=== PATIENT | male | born 1975 | race Caucasian/White ===

== ENCOUNTER → 2016-06-25 | Outpatient (CLI) | payer OTHER ==
[2016-06-25 15:26] LABS: PROTHROMBIN TIME 29.2 SEC (11.4-15.4)
== END ==
LOC: OD 14:42
PROVIDERS: ATTEND Pediatrics Pediatric Cardiology
DX: Z95.2 Presence of prosthetic heart valve (principal)
CPT/HCPCS: 36415; 85610

== ENCOUNTER → 2016-07-05 | Outpatient (CLI) | payer OTHER ==
[2016-07-05 09:40] LABS: PROTHROMBIN TIME 32.6 SEC (11.4-15.4)
== END ==
LOC: OD 08:57
PROVIDERS: ATTEND Pediatrics Pediatric Cardiology
DX: Z95.2 Presence of prosthetic heart valve (principal)
CPT/HCPCS: 36415; 85610

== ENCOUNTER 2016-07-28 04:29 | Emergency (ER) | payer OTHER ==
--- NOTE | 2016-07-28 04:56 | ER Document Report ---
Doctor's Note Notes: 07/28/16 04:52 I performed a quick triage evaluation of the patient. Patient is a 40-year-old male with a history of strokes at her urosepsis it led to surgery requiring mitral and aortic valve replacement. He presents considerable episode. He says he did drink alcohol tonight. He says he was walking to go through office also warm and then a syncopal episode. He denies standing up suddenly. He denies headache before after the fall. He denies any chest pain. No shortness of breath. He says he otherwise feels fine. He is followed by Dr. 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 No recent leg pain leg swelling. No recent fevers. No focal weakness or numbness. No other complaints at this time. On exam patient is well-appearing. He is in no distress. His lung spears are clear. 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 Ordered a CT scan the head being that he is on Coumadin and did have a syncopal episode. Ordered cardiac workup due to his cardiac history. I did obtain EKG which I read as follows: EKG is reviewed and interpreted by me. EKG shows sinus rhythm with rate of 66 bpm. Occasional PVC. Patient has large right bundle branch block which I suspect was caused by his previous open-heart surgery. No concerning ischemic changes. No old EKG available for comparison. Prior interval is slightly prolonged. QRS duration is prolonged. QTc interval is prolonged. 07/28/16 04:53
[2016-07-28 05:58] LABS: ABSOLUTE BASOPHILS # (AUTO) 0.1 10^3/uL (0.0-0.2); ABSOLUTE EOSINOPHILS # (AUTO) 0.2 10^3/uL (0.0-0.6); ABSOLUTE LYMPHOCYTES (AUTO) 1.4 10^3/uL (0.5-4.7); ABSOLUTE MONOCYTES (AUTO) 0.4 10^3/uL (0.1-1.4); ABSOLUTE NEUT (AUTO) 3.3 10^3/uL (1.7-8.2); BASOPHILS % (AUTO) 1.2 % (0-2); EOSINOPHILS % (AUTO) 3.8 % (0-6); HEMATOCRIT 41.4 % (37.9-51.0); HEMOGLOBIN 14.1 g/dL (13.5-17.0); HGB HCT DIFFERENCE 0.9; LYMPHOCYTES % (AUTO) 26.4 % (13-45); MEAN CORPUSCULAR HEMOGLOBIN 29.5 pg (27.0-33.4); MEAN CORPUSCULAR HGB CONC 34.1 g/dL (32.0-36.0); MEAN CORPUSCULAR VOLUME 87 fl (80-97); MONOCYTES % (AUTO) 7.8 % (3-13); RED BLOOD COUNT 4.78 10^6/uL (4.35-5.55); RED CELL DISTRIBUTION WIDTH 13.2 % (11.5-14.0); SEGMENTED NEUTROPHILS % (AUTO) 60.8 % (42-78); WHITE BLOOD COUNT 5.4 10^3/uL (4.0-10.5)
[2016-07-28 06:06] LABS: PROTHROMBIN TIME 28.7 SEC (11.4-15.4)
[2016-07-28 06:18] LABS: ALANINE AMINOTRANSFERASE 31 U/L (21-72); ALBUMIN 4.6 g/dL (3.5-5.0); ALKALINE PHOSPHATASE 73 U/L (38-126); ANION GAP 18 (5-19); ASPARTATE AMINO TRANSFERASE 26 U/L (17-59); BILIRUBIN,TOTAL 0.6 mg/dL (0.2-1.3); BLOOD UREA NITROGEN 21 mg/dL (7-20); CALCIUM 9.7 mg/dL (8.4-10.2); CARBON DIOXIDE 20 mmol/L (22-30); CHLORIDE 105 mmol/L (98-107); CREATINE KINASE 83 U/L (55-170); GLUCOSE 76 mg/dL (75-110); POTASSIUM 3.9 mmol/L (3.6-5.0); SODIUM 143.2 mmol/L (137-145); TOTAL PROTEIN 7.2 g/dL (6.3-8.2)
[2016-07-28 06:31] LABS: CREATINE KINASE MB 1.15 ng/mL (<4.55)
[2016-07-28 06:40] LABS: TROPONIN I < 0.012 ng/mL
[2016-07-28] MEDS ORDERED: NORMAL SALINE 1000 ML 500 ML IV ONE (07:19)
[2016-07-28] MEDS ORDERED: ONDANSETRON ODT 4 MG TAB (6 TAB/DSPK) PO PRN (09:18)
--- NOTE | 2016-07-28 09:19 | ER Document Report ---
ED General - General Chief Complaint: Syncope Stated Complaint: FALL SYNCOPE TRAVEL OUTSIDE OF THE [place] IN LAST 30 DAYS: No - HPI Patient complains to provider of: syncope EtOH intoxication Notes: Patient is today with a history of valvular replacement on Coumadin having syncopal episode after drinking. Patient states he had multiple alcohol drinks has equal episode fell his head otherwise by my evaluation patient has no complaints this time. Patient states he feels little finding possibly however no nausea no vomiting no diarrhea. Patient was seen and evaluated by nighttime doc. Patient otherwise denies any recent travel antibiotics denies any pain at this time. - Related Data Allergies/Adverse Reactions: aspirin [Aspirin] Allergy (Mild, Verified 10/11/14 23:31) Past Medical History - Social History Smoking Status: Current Some Day Smoker Chew tobacco use (# tins/day): No Frequency of alcohol use: Rare Drug Abuse: None Family History: Reviewed & Not Pertinent Patient has suicidal ideation: No Patient has homicidal ideation: No - Past Medical History Cardiac Medical History: Reports: Hx Hypercholesterolemia, Hx Hypertension Renal/ Medical History: Denies: Hx Peritoneal Dialysis Malignancy Medical History: Reports Hx Testicular 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 Past Surgical History: Reports: Hx Cardiac Catheterization, Hx Cardiac Surgery - aortic & mitral valve replacements, Hx Genitourinary Surgery - L orchiectomy, Hx Orthopedic Surgery, Hx Valve Replacement - Replacement of the aortic and pulmonic valves - Immunizations Hx Diphtheria, Pertussis, Tetanus Vaccination: Yes Review of Systems - Review of Systems Constitutional: No symptoms reported EENT: No symptoms reported Cardiovascular: Syncope Respiratory: No symptoms reported Gastrointestinal: No symptoms reported Genitourinary: No symptoms reported Male Genitourinary: No symptoms reported Musculoskeletal: No symptoms reported Skin: No symptoms reported Hematologic/Lymphatic: No symptoms reported Neurological/Psychological: No symptoms reported -: Yes All other systems reviewed and negative Physical Exam - Vital signs Vitals: Resp BP Pulse Ox 20 146/90 H 96 07/28/16 04:48 07/28/16 04:48 07/28/16 04:48 Interpretation: Normal - General General appearance: Appears well, Alert - HEENT Head: Normocephalic, Atraumatic Eyes: Normal Pupils: PERRL - Respiratory Respiratory status: No respiratory distress Chest status: Nontender Breath sounds: Normal Chest palpation: Normal - Cardiovascular Rhythm: Regular Heart sounds: Normal auscultation Murmur: No - Abdominal Inspection: Normal Distension: No distension Bowel sounds: Normal Tenderness: Nontender Organomegaly: No organomegaly - Back Back: Normal, Nontender - Extremities General upper extremity: Normal inspection, Nontender, Normal color, Normal ROM , Normal temperature General lower extremity: Normal inspection, Nontender, Normal color, Normal ROM , Normal temperature, Normal weight bearing. No: Johny's sign - Neurological Neuro grossly intact: Yes Cognition: Normal Orientation: AAOx4 [place] Coma Scale Eye Opening: Spontaneous [place] Coma Scale Verbal: Oriented Alex Coma Scale Motor: Obeys Commands [place] Coma Scale Total: 15 Speech: Normal Motor strength normal: LUE, RUE, LLE, RLE Sensory: Normal - Psychological Associated symptoms: Normal affect, Normal mood - Skin Skin Temperature: Warm Skin Moisture: Dry Skin Color: Normal Course - Re-evaluation Re-evalutation: 07/28/16 14:10 Patient is workup shows possibly mild dehydration patient was given IV fluids and was able and what around the ER after. Of Observation. CT scan head and chest x-ray were all negative for any acute pathology. Patient agrees with discharge home patient was given Zofran patient was encouraged to drink fluids to rehydrate himself after a night of drinking. - Vital Signs Vital signs: Temp Pulse Resp BP Pulse Ox 98.8 F 31 H 118/86 H 92 07/28/16 09:33 07/28/16 09:33 07/28/16 09:33 07/28/16 09:33 - Laboratory Result Diagrams: 07/28/16 05:40 07/28/16 05:40 Laboratory results interpreted by me: 07/28/16 07/28/16 05:40 05:40 PT 28.7 H Carbon Dioxide 20 L BUN 21 H Creatinine 1.30 H Discharge - Discharge Clinical Impression: hx ofheart valve replacement on Coumadin Acute alcohol intoxication Qualifiers: Complication of substance-induced condition: with unspecified complication Qualified Code(s): F10.129 - Alcohol abuse with intoxication, unspecified Syncope Qualifiers: Syncope type: unspecified Qualified Code(s): R55 - Syncope and collapse Condition: Good Disposition: HOME, SELF-CARE Instructions: Acute Alcohol Intoxication ([facility]), Syncopal Episode ([facility]) Additional Instructions: Please drink plenty water and Gatorade to rehydrate herself today. He may take the nausea medication given to you here in ER for any nausea. Please abstain from drinking alcohol in excess. Follow-up with your doctors as needed.
[2016-07-28 09:45] VITALS: BP 118/86
--- NOTE | 2016-07-29 13:50 | EKG REPORT ---
SEVERITY:- ABNORMAL ECG - SINUS RHYTHM VS AFIB, REC REPEAT EKG SECONDARY TO BASELINE ARTIFACTS MULTIPLE VENTRICULAR PREMATURE COMPLEXES RIGHT BUNDLE BRANCH BLOCK : Confirmed by: Humera Serrano 29-Jul-2016 13:49:28
== END 2016-07-28 09:35 | disposition home or self-care (01) ==
LOC: ER 04:29
DX: R55 Syncope and collapse (principal); F10.129 Alcohol abuse with intoxication, unspecified; Z79.01 Long term (current) use of anticoagulants; F17.200 Nicotine dependence, unspecified, uncomplicated; Z95.2 Presence of prosthetic heart valve
CPT/HCPCS: 93005; 99285; 96360; 36415; 82553; 80307; 82550; 85025; 85610; 80053; 84484; 71010; 70450; 93010; J7030

== ENCOUNTER 2016-08-08 22:11 | Emergency (ER) | payer OTHER ==
[2016-08-08 23:21] LABS: ABSOLUTE EOSINOPHILS # (AUTO) 0.1 10^3/uL (0.0-0.6); ABSOLUTE LYMPHOCYTES (AUTO) 0.8 10^3/uL (0.5-4.7); ABSOLUTE MONOCYTES (AUTO) 0.5 10^3/uL (0.1-1.4); ABSOLUTE NEUT (AUTO) 5.5 10^3/uL (1.7-8.2); BASOPHILS % (AUTO) 0.3 % (0-2); EOSINOPHILS % (AUTO) 1.9 % (0-6); HEMATOCRIT 40.9 % (37.9-51.0); HEMOGLOBIN 13.5 g/dL (13.5-17.0); HGB HCT DIFFERENCE -0.4; LYMPHOCYTES % (AUTO) 11.2 % (13-45); MEAN CORPUSCULAR HEMOGLOBIN 28.7 pg (27.0-33.4); MEAN CORPUSCULAR VOLUME 87 fl (80-97); MONOCYTES % (AUTO) 6.6 % (3-13); RED CELL DISTRIBUTION WIDTH 13.5 % (11.5-14.0); WHITE BLOOD COUNT 6.9 10^3/uL (4.0-10.5)
[2016-08-08 23:31] LABS: ALANINE AMINOTRANSFERASE 52 U/L (21-72); ALBUMIN 4.5 g/dL (3.5-5.0); ALKALINE PHOSPHATASE 69 U/L (38-126); ANION GAP 13 (5-19); ASPARTATE AMINO TRANSFERASE 38 U/L (17-59); BILIRUBIN,DIRECT 0.2 mg/dL (0.0-0.4); BILIRUBIN,TOTAL 0.8 mg/dL (0.2-1.3); BLOOD UREA NITROGEN 21 mg/dL (7-20); CALCIUM 10.1 mg/dL (8.4-10.2); CARBON DIOXIDE 24 mmol/L (22-30); CHLORIDE 104 mmol/L (98-107); CREATINE KINASE 116 U/L (55-170); CREATININE RESULT 1.26 mg/dL (0.52-1.25); GLUCOSE 81 mg/dL (75-110); POTASSIUM 4.1 mmol/L (3.6-5.0); SODIUM 140.8 mmol/L (137-145)
[2016-08-08 23:43] LABS: CREATINE KINASE MB 1.99 ng/mL (<4.55); TROPONIN I 0.013 ng/mL
--- NOTE | 2016-08-09 01:45 | ER Document Report ---
ED General - General Chief Complaint: Palpitations Stated Complaint: RAPID HEART PALPITATIONS Notes: Patient is a 40-year-old male who presents with complaints of feeling short of breath and feel like his heart beats fast whenever he gets up and walks around. Since been ongoing for several days now. He does a history of mitral and aortic valve replacement. He is on Coumadin. He because wool shearer today who told him come to the ER. He is followed by Dr. Beach in [place], [place]. No other complaints at this time. He denies any chest pain. TRAVEL OUTSIDE OF THE U.S. IN LAST 30 DAYS: No - Related Data Allergies/Adverse Reactions: aspirin [Aspirin] Allergy (Mild, Verified 08/08/16 22:38) Past Medical History - Social History Smoking Status: Never Smoker Chew tobacco use (# tins/day): No Frequency of alcohol use: Occasional Drug Abuse: None Family History: Reviewed & Not Pertinent - Past Medical History Cardiac Medical History: Reports: Hx Hypercholesterolemia, Hx Hypertension Renal/ Medical History: Denies: Hx Peritoneal Dialysis Malignancy Medical History: Reports Hx Testicular 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 Past Surgical History: Reports: Hx Cardiac Catheterization, Hx Cardiac Surgery - aortic & mitral valve replacements, Hx Genitourinary Surgery - L orchiectomy, Hx Orthopedic Surgery, Hx Valve Replacement - Replacement of the aortic and pulmonic valves - Immunizations Hx Diphtheria, Pertussis, Tetanus Vaccination: Yes Review of Systems - Review of Systems Notes: My Normal Review Basic REVIEW OF SYSTEMS: CONSTITUTIONAL : Denies fever, chills, or sweats. Denies recent illness. EENT: Denies eye, ear, throat, or mouth pain or symptoms. Denies nasal or sinus congestion. CARDIOVASCULAR: Denies chest pain. RESPIRATORY: Difficulty breathing with exertion GASTROINTESTINAL: Denies abdominal pain. Denies nausea, vomiting, or diarrhea. Denies constipation. Last BM: MUSCULOSKELETAL: Denies neck or back pain or joint pain or swelling. SKIN: Denies rash or skin lesions. NEUROLOGICAL: Denies altered mental status or loss of consciousness. Denies headache. Denies weakness or paralysis or loss of use of either side. Denies problems with gait or speech. Denies sensory or motor loss. ALL OTHER SYSTEMS REVIEWED AND NEGATIVE. Physical Exam - Vital signs Vitals: Temp Pulse Resp BP Pulse Ox 97.3 F 53 L 16 169/86 H 99 08/08/16 22:21 08/08/16 22:21 08/08/16 22:21 08/08/16 22:21 08/08/16 22:21 - Notes Notes: General Appearance: Well nourished, alert, cooperative, no acute distress, no obvious discomfort. Well-appearing. Vitals: reviewed, See vital signs table. Head: no swelling or tenderness to the head Eyes: PERRL, EOMI, Conjuctiva clear Mouth: No decreasd moisture Neck: Supple, no neck tenderness, No thyromegaly Lungs: No wheezing, No rales, No rhonci, No accessory muscle use, good air exchange bilaterally. Heart: Normal rate, Regular rythm, loud clicking type murmur consistent with his history of valve replacement. Abdomen: Normal BS, soft, No rigidity, No abdominal tenderness, No guarding, no rebound, no abdominal masses, no organomegaly Extremities: strength 5/5 in all extremities, good pulses in all extremities, no swelling or tenderness in the extremities, no edema. Skin: warm, dry, appropriate color, no rash Neuro: speech clear, oriented x 3, normal affect, responds appropriately to questions. Course - Re-evaluation Re-evalutation: 08/09/16 02:[address] Rojas, wool shearer covering for Dr. Beach. I reviewed the patient's symptoms. Also went over his vital signs. His heart rate is in the 50s and 60s. He suggests that we cut his Nadilol dose in half. He says to have the patient call Dr. Luna's office for close follow-up appoint. If he gets feeling worse than by all means he is to return to ER. I explained the plan to the patient. He is agreeable to this plan. Patient has no rales in his lung spears. His lung spears are clear and his chest x-rays normal. Dr. Rojas was able to look up the patient's recent echo which showed an EF of 60%. Dictation of this chart was performed using voice recognition software; therefore, there may be some unintended grammatical errors. - Vital Signs Vital signs: Temp Pulse Resp BP Pulse Ox 97.3 F 53 L 24 H 163/105 H 99 08/08/16 22:21 08/08/16 22:21 08/09/16 02:12 08/09/16 02:12 08/09/16 02:12 - Laboratory Result Diagrams: 08/08/16 22:55 08/08/16 22:55 Laboratory results interpreted by me: 08/08/16 08/08/16 08/08/16 22:55 22:55 22:55 Seg Neutrophils % 80.0 H Lymphocytes % 11.2 L PT 33.1 H BUN 21 H Creatinine 1.26 H - EKG Interpretation by Me Additional EKG results interpreted by me: 08/09/16 01:48 EKG is reviewed and interpreted by me. EKG shows sinus rhythm with rate of 55 bpm. Patient has occasional PVC. Patient has a right bundle branch block which is consistent with his old EKG. His old EKG is from 07/28/2016. Discharge - Discharge Clinical Impression: Exertional dyspnea, Bradycardia Condition: Good Additional Instructions: Please cut your Nadolol dosage in half. Please call Dr. Beach's office for a close follow up appointment. Please return to the ER immediately if you have worsening of your symptoms,worsening difficulty breahting, chest pain, or feel unwell. Forms: Return to Work
[2016-08-09 01:54] LABS: PROTHROMBIN TIME 33.1 SEC (11.4-15.4)
[2016-08-09 03:58] VITALS: BP 148/86
--- NOTE | 2016-08-09 07:18 | EKG REPORT ---
SEVERITY:- ABNORMAL ECG - SINUS RHYTHM MULTIPLE VENTRICULAR PREMATURE COMPLEXES FIRST DEGREE AV BLOCK RIGHT BUNDLE BRANCH BLOCK : Confirmed by: Hernandez Ramirez MD 09-Aug-2016 07:16:35
== END 2016-08-09 04:04 | disposition home or self-care (01) ==
LOC: ER 22:11
DX: I49.3 Ventricular premature depolarization (principal); R06.09 Other forms of dyspnea; I45.10 Unspecified right bundle-branch block; R06.02 Shortness of breath; I10 Essential (primary) hypertension; Z95.2 Presence of prosthetic heart valve; Z79.01 Long term (current) use of anticoagulants; Z88.6 Allergy status to analgesic agent; Z85.47 Personal history of malignant neoplasm of testis
CPT/HCPCS: 36415; 71010; 80053; 82550; 82553; 84484; 85025; 85610; 93005; 93010; 99285

== ENCOUNTER → 2016-09-26 | Outpatient (CLI) | payer OTHER ==
[2016-09-26 11:41] LABS: PROTHROMBIN TIME 15.7 SEC (11.4-15.4)
== END ==
LOC: OD 10:57
PROVIDERS: ATTEND Pediatrics Pediatric Cardiology
DX: Z95.2 Presence of prosthetic heart valve (principal)
CPT/HCPCS: 36415; 85610

== ENCOUNTER → 2016-09-27 | Outpatient (CLI) | payer OTHER ==
[2016-09-27 13:34] LABS: PROTHROMBIN TIME 16.9 SEC (11.4-15.4)
== END ==
LOC: OD 12:18
PROVIDERS: ATTEND Pediatrics Pediatric Cardiology
DX: Z95.2 Presence of prosthetic heart valve (principal)
CPT/HCPCS: 36415; 85610

== ENCOUNTER → 2016-09-30 | Outpatient (CLI) | payer OTHER ==
[2016-09-30 10:43] LABS: PROTHROMBIN TIME 19.7 SEC (11.4-15.4)
== END ==
LOC: OD 10:05
PROVIDERS: ATTEND Pediatrics Pediatric Cardiology
DX: Z95.2 Presence of prosthetic heart valve (principal)
CPT/HCPCS: 36415; 85610

== ENCOUNTER → 2016-10-04 | Outpatient (CLI) | payer OTHER ==
[2016-10-04 10:11] LABS: PROTHROMBIN TIME 22.1 SEC (11.4-15.4)
== END ==
LOC: OD 09:33
PROVIDERS: ATTEND Pediatrics Pediatric Cardiology
DX: Z95.2 Presence of prosthetic heart valve (principal)
CPT/HCPCS: 36415; 85610

== ENCOUNTER → 2016-10-07 | Outpatient (CLI) | payer OTHER ==
[2016-10-07 14:13] LABS: PROTHROMBIN TIME 27.5 SEC (11.4-15.4)
== END ==
LOC: OD 13:29
PROVIDERS: ATTEND Pediatrics Pediatric Cardiology
DX: Z95.2 Presence of prosthetic heart valve (principal)
CPT/HCPCS: 36415; 85610

== ENCOUNTER → 2016-10-09 | Outpatient (CLI) | payer OTHER ==
[2016-10-09 12:36] LABS: PROTHROMBIN TIME 24.3 SEC (11.4-15.4)
== END ==
LOC: OD 11:38
PROVIDERS: ATTEND Pediatrics Pediatric Cardiology
DX: Z95.2 Presence of prosthetic heart valve (principal)
CPT/HCPCS: 36415; 85610

== ENCOUNTER → 2016-10-11 | Outpatient (CLI) | payer OTHER ==
[2016-10-11 09:44] LABS: PROTHROMBIN TIME 28.3 SEC (11.4-15.4)
== END ==
LOC: OD 08:33
PROVIDERS: ATTEND Pediatrics Pediatric Cardiology
DX: Z95.2 Presence of prosthetic heart valve (principal)
CPT/HCPCS: 36415; 85610

== ENCOUNTER → 2016-10-15 | Outpatient (CLI) | payer OTHER ==
[2016-10-15 13:28] LABS: PROTHROMBIN TIME 32.4 SEC (11.4-15.4)
== END ==
LOC: OD 12:46
PROVIDERS: ATTEND Pediatrics Pediatric Cardiology
DX: Z95.2 Presence of prosthetic heart valve (principal)
CPT/HCPCS: 36415; 85610

== ENCOUNTER → 2016-10-22 | Outpatient (CLI) | payer OTHER ==
[2016-10-22 12:55] LABS: PROTHROMBIN TIME 44.2 SEC (11.4-15.4)
== END ==
LOC: OD 12:14
PROVIDERS: ATTEND Pediatrics Pediatric Cardiology
DX: Z95.2 Presence of prosthetic heart valve (principal)
CPT/HCPCS: 36415; 85610

== ENCOUNTER → 2016-10-29 | Outpatient (CLI) | payer OTHER ==
[2016-10-29 13:55] LABS: PROTHROMBIN TIME 27.2 SEC (11.4-15.4)
== END ==
LOC: OD 13:14
PROVIDERS: ATTEND Pediatrics Pediatric Cardiology
DX: Z95.2 Presence of prosthetic heart valve (principal)
CPT/HCPCS: 36415; 85610

== ENCOUNTER → 2016-11-05 | Outpatient (CLI) | payer OTHER ==
[2016-11-05 13:53] LABS: PROTHROMBIN TIME 20.5 SEC (11.4-15.4)
== END ==
LOC: OD 13:14
PROVIDERS: ATTEND Pediatrics Pediatric Cardiology
DX: Z95.2 Presence of prosthetic heart valve (principal)
CPT/HCPCS: 36415; 85610

== ENCOUNTER → 2016-11-07 | Outpatient (CLI) | payer OTHER ==
[2016-11-07 19:12] LABS: PROTHROMBIN TIME 24.1 SEC (11.4-15.4)
== END ==
LOC: OD 17:38
PROVIDERS: ATTEND Pediatrics Pediatric Cardiology
DX: Z95.2 Presence of prosthetic heart valve (principal)
CPT/HCPCS: 36415; 85610

== ENCOUNTER → 2016-11-21 | Outpatient (CLI) | payer OTHER ==
[2016-11-21 09:31] LABS: PROTHROMBIN TIME 28.4 SEC (11.4-15.4)
== END ==
LOC: OD 08:34
PROVIDERS: ATTEND Pediatrics Pediatric Cardiology
DX: Z95.2 Presence of prosthetic heart valve (principal)
CPT/HCPCS: 36415; 85610

== ENCOUNTER → 2016-11-29 | Outpatient (CLI) | payer OTHER ==
[2016-11-29 08:54] LABS: PROTHROMBIN TIME 34.8 SEC (11.4-15.4)
== END ==
LOC: OD 08:12
PROVIDERS: ATTEND Pediatrics Pediatric Cardiology
DX: Z95.2 Presence of prosthetic heart valve (principal)
CPT/HCPCS: 36415; 85610

== ENCOUNTER → 2016-12-20 | Outpatient (CLI) | payer OTHER ==
[2016-12-20 09:02] LABS: PROTHROMBIN TIME 37.8 SEC (11.4-15.4)
== END ==
LOC: OD 08:35
PROVIDERS: ATTEND Pediatrics Pediatric Cardiology
DX: Z95.2 Presence of prosthetic heart valve (principal)
CPT/HCPCS: 36415; 85610

== ENCOUNTER → 2017-01-07 | Outpatient (CLI) | payer OTHER ==
[2017-01-07 13:18] LABS: PROTHROMBIN TIME 21.8 SEC (11.4-15.4)
== END ==
LOC: OD 12:42
PROVIDERS: ATTEND Pediatrics Pediatric Cardiology
DX: Z95.2 Presence of prosthetic heart valve (principal)
CPT/HCPCS: 36415; 85610

== ENCOUNTER → 2017-01-09 | Outpatient (CLI) | payer OTHER ==
[2017-01-09 13:31] LABS: PROTHROMBIN TIME 22.4 SEC (11.4-15.4)
== END ==
LOC: OD 12:56
PROVIDERS: ATTEND Pediatrics Pediatric Cardiology
DX: Z95.2 Presence of prosthetic heart valve (principal)
CPT/HCPCS: 36415; 85610

== ENCOUNTER → 2017-01-13 | Outpatient (CLI) | payer OTHER ==
[2017-01-13 09:54] LABS: PROTHROMBIN TIME 28.1 SEC (11.4-15.4)
== END ==
LOC: OD 09:06
PROVIDERS: ATTEND Pediatrics Pediatric Cardiology
DX: Z95.2 Presence of prosthetic heart valve (principal)
CPT/HCPCS: 36415; 85610

== ENCOUNTER → 2017-01-16 | Outpatient (CLI) | payer OTHER ==
[2017-01-16 11:53] LABS: PROTHROMBIN TIME 29.7 SEC (11.4-15.4)
== END ==
LOC: OD 10:53
PROVIDERS: ATTEND Pediatrics Pediatric Cardiology
DX: Z95.2 Presence of prosthetic heart valve (principal)
CPT/HCPCS: 36415; 85610

== ENCOUNTER → 2017-01-24 | Outpatient (CLI) | payer OTHER ==
[2017-01-24 09:41] LABS: PROTHROMBIN TIME 31.6 SEC (11.4-15.4)
== END ==
LOC: OD 08:48
PROVIDERS: ATTEND Pediatrics Pediatric Cardiology
DX: Z95.2 Presence of prosthetic heart valve (principal)
CPT/HCPCS: 36415; 85610

== ENCOUNTER → 2017-01-31 | Outpatient (CLI) | payer OTHER ==
[2017-01-31 10:01] LABS: PROTHROMBIN TIME 33.6 SEC (11.4-15.4)
== END ==
LOC: OD 08:41
PROVIDERS: ATTEND Pediatrics Pediatric Cardiology
DX: Z95.2 Presence of prosthetic heart valve (principal)
CPT/HCPCS: 36415; 85610

== ENCOUNTER → 2017-02-07 | Outpatient (CLI) | payer OTHER ==
[2017-02-07 10:00] LABS: PROTHROMBIN TIME 30.1 SEC (11.4-15.4)
== END ==
LOC: OD 09:05
PROVIDERS: ATTEND Pediatrics Pediatric Cardiology
DX: Z95.2 Presence of prosthetic heart valve (principal)
CPT/HCPCS: 36415; 85610

== ENCOUNTER → 2017-02-14 | Outpatient (CLI) | payer OTHER ==
[2017-02-14 10:06] LABS: PROTHROMBIN TIME 32.1 SEC (11.4-15.4)
== END ==
LOC: OD 09:03
PROVIDERS: ATTEND Pediatrics Pediatric Cardiology
DX: Z95.2 Presence of prosthetic heart valve (principal)
CPT/HCPCS: 36415; 85610

== ENCOUNTER → 2017-02-21 | Outpatient (CLI) | payer OTHER ==
[2017-02-21 09:26] LABS: PROTHROMBIN TIME 37.6 SEC (11.4-15.4)
== END ==
LOC: OD 08:50
PROVIDERS: ATTEND Pediatrics Pediatric Cardiology
DX: Z95.2 Presence of prosthetic heart valve (principal)
CPT/HCPCS: 36415; 85610

== ENCOUNTER → 2017-02-28 | Outpatient (CLI) | payer OTHER ==
[2017-02-28 12:24] LABS: PROTHROMBIN TIME 25.3 SEC (11.4-15.4)
== END ==
LOC: OD 11:49
PROVIDERS: ATTEND Pediatrics Pediatric Cardiology
DX: Z95.2 Presence of prosthetic heart valve (principal)
CPT/HCPCS: 36415; 85610

== ENCOUNTER → 2017-03-07 | Outpatient (CLI) | payer OTHER ==
[2017-03-07 09:08] LABS: PROTHROMBIN TIME 26.7 SEC (11.4-15.4)
== END ==
LOC: OD 08:24
PROVIDERS: ATTEND Pediatrics Pediatric Cardiology
DX: Z95.2 Presence of prosthetic heart valve (principal)
CPT/HCPCS: 36415; 85610

== ENCOUNTER → 2017-03-28 | Outpatient (CLI) | payer OTHER ==
[2017-03-28 11:07] LABS: PROTHROMBIN TIME 31.1 SEC (11.4-15.4)
== END ==
LOC: OD 09:33
PROVIDERS: ATTEND Pediatrics Pediatric Cardiology
DX: Z95.2 Presence of prosthetic heart valve (principal)
CPT/HCPCS: 36415; 85610

== ENCOUNTER → 2017-04-04 | Outpatient (CLI) | payer OTHER ==
[2017-04-04 09:38] LABS: PROTHROMBIN TIME 33.1 SEC (11.4-15.4)
== END ==
LOC: OD 09:14
PROVIDERS: ATTEND Pediatrics Pediatric Cardiology
DX: Z95.2 Presence of prosthetic heart valve (principal)
CPT/HCPCS: 36415; 85610

== ENCOUNTER → 2017-04-22 | Outpatient (CLI) | payer OTHER ==
[2017-04-22 12:38] LABS: PROTHROMBIN TIME 28.9 SEC (11.4-15.4)
== END ==
LOC: OD 11:58
PROVIDERS: ATTEND Pediatrics Pediatric Cardiology
DX: Z95.2 Presence of prosthetic heart valve (principal)
CPT/HCPCS: 36415; 85610

== ENCOUNTER 2017-05-01 16:28 | Emergency (ER) | payer OTHER ==
--- NOTE | 2017-05-01 16:58 | ER Document Report ---
ED Medical Screen (RME) - General Chief Complaint: Chest Pain Stated Complaint: CHEST PAIN Time Seen by Provider: 05/01/17 16:55 Notes: Patient presents with chest pain and shortness of breath. He is also having palpitations. He states that he has a history of 3 mitral valve surgery. Most recently he had an ablation done at [facility] in [place]. This was done several weeks ago. He states after this ablation they have stopped his beta- iris. He states he is feeling fine until the last couple of days when he began to have palpitations and chest pain. He denies any cough or cold symptoms. TRAVEL OUTSIDE OF THE [place] IN LAST 30 DAYS: No - Related Data Allergies/Adverse Reactions: aspirin [Aspirin] Allergy (Mild, Verified 05/01/17 16:28) Past Medical History - Social History Chew tobacco use (# tins/day): No Frequency of alcohol use: Social Drug Abuse: None - Past Medical History Cardiac Medical History: Reports: Hx Hypercholesterolemia, Hx Hypertension Renal/ Medical History: Denies: Hx Peritoneal Dialysis Malignancy Medical History: Reports Hx Testicular 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 Past Surgical History: Reports: Hx Cardiac Catheterization, Hx Cardiac Surgery - aortic & mitral valve replacements, Hx Genitourinary Surgery - L orchiectomy, Hx Orthopedic Surgery, Hx Valve Replacement - Replacement of the aortic and pulmonic valves - Immunizations Hx Diphtheria, Pertussis, Tetanus Vaccination: Yes Physical Exam - Vital signs Vitals: Temp Pulse Resp BP Pulse Ox 98.4 F 108 H 20 139/89 H 95 05/01/17 16:36 05/01/17 16:36 05/01/17 16:36 05/01/17 16:36 05/01/17 16:36 Course - Vital Signs Vital signs: Temp Pulse Resp BP Pulse Ox 98.4 F 108 H 20 139/89 H 95 05/01/17 16:36 05/01/17 16:36 05/01/17 16:36 05/01/17 16:36 05/01/17 16:36
[2017-05-01 17:25] LABS: ABSOLUTE EOSINOPHILS # (AUTO) 0.1 10^3/uL (0.0-0.6); ABSOLUTE LYMPHOCYTES (AUTO) 0.9 10^3/uL (0.5-4.7); ABSOLUTE MONOCYTES (AUTO) 0.5 10^3/uL (0.1-1.4); ABSOLUTE NEUT (AUTO) 4.3 10^3/uL (1.7-8.2); BASOPHILS % (AUTO) 0.5 % (0-2); EOSINOPHILS % (AUTO) 2.3 % (0-6); HEMATOCRIT 42.9 % (37.9-51.0); HEMOGLOBIN 14.8 g/dL (13.5-17.0); HGB HCT DIFFERENCE 1.5; LYMPHOCYTES % (AUTO) 15.7 % (13-45); MEAN CORPUSCULAR HEMOGLOBIN 29.6 pg (27.0-33.4); MEAN CORPUSCULAR HGB CONC 34.6 g/dL (32.0-36.0); MEAN CORPUSCULAR VOLUME 86 fl (80-97); MONOCYTES % (AUTO) 8.5 % (3-13); RED BLOOD COUNT 5.02 10^6/uL (4.35-5.55); RED CELL DISTRIBUTION WIDTH 13.7 % (11.5-14.0); WHITE BLOOD COUNT 5.9 10^3/uL (4.0-10.5)
[2017-05-01 17:37] LABS: ALANINE AMINOTRANSFERASE 43 U/L (21-72); ALBUMIN 4.9 g/dL (3.5-5.0); ALKALINE PHOSPHATASE 84 U/L (38-126); ANION GAP 14 (5-19); ASPARTATE AMINO TRANSFERASE 34 U/L (17-59); BILIRUBIN,DIRECT 0.1 mg/dL (0.0-0.4); BILIRUBIN,TOTAL 0.4 mg/dL (0.2-1.3); BLOOD UREA NITROGEN 18 mg/dL (7-20); CALCIUM 10.4 mg/dL (8.4-10.2); CARBON DIOXIDE 26 mmol/L (22-30); CHLORIDE 104 mmol/L (98-107); CREATININE RESULT 1.21 mg/dL (0.52-1.25); GLUCOSE 73 mg/dL (75-110); MAGNESIUM 1.8 mg/dL (1.6-2.3); POTASSIUM 4.3 mmol/L (3.6-5.0); SODIUM 143.7 mmol/L (137-145); TOTAL PROTEIN 7.8 g/dL (6.3-8.2)
--- NOTE | 2017-05-01 17:52 | ER Document Report ---
ED Cardiac - General Chief Complaint: Chest Pain Stated Complaint: CHEST PAIN Time Seen by Provider: 05/01/17 16:55 Notes: 41 years old male with a history of mitral valve replacement with mechanical valve, cardiac ablation for SVT, was on Tenormin, which was discontinued last few months. Presents today with the episode of palpitation lasted until he came to the ED. He denies associated dizziness, chest pain, denies any left arm numbness tingling sensation nausea vomiting. Denies any constitutional symptoms TRAVEL OUTSIDE OF THE [place] IN LAST 30 DAYS: No - Related Data Allergies/Adverse Reactions: aspirin [Aspirin] Allergy (Mild, Verified 05/01/17 16:28) Home Medications: Current Home Medications Atenolol [Tenormin] 25 mg PO DAILY 05/01/17 [History] Past Medical History - Social History Smoking Status: Former Smoker Chew tobacco use (# tins/day): No Frequency of alcohol use: Social Drug Abuse: None Family History: Reviewed & Not Pertinent Patient has suicidal ideation: No Patient has homicidal ideation: No - Past Medical History Cardiac Medical History: Reports: Hx Hypercholesterolemia, Hx Hypertension Renal/ Medical History: Denies: Hx Peritoneal Dialysis Malignancy Medical History: Reports Hx Testicular 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 Past Surgical History: Reports: Hx Cardiac Catheterization, Hx Cardiac Surgery - aortic & mitral valve replacements, Hx Genitourinary Surgery - L orchiectomy, Hx Orthopedic Surgery, Hx Valve Replacement - Replacement of the aortic and pulmonic valves - Immunizations Hx Diphtheria, Pertussis, Tetanus Vaccination: Yes Review of Systems - Review of Systems Notes: REVIEW OF SYSTEMS: CONSTITUTIONAL : Denies fever, chills, or sweats. Denies recent illness. EENT: Denies eye, ear, throat, or mouth pain or symptoms. Denies nasal or sinus congestion or discharge. Denies throat, tongue, or mouth swelling or difficulty swallowing. CARDIOVASCULAR: Denies chest pain. Denies palpitations or racing or irregular heart beat. Denies ankle edema. RESPIRATORY: Denies cough, cold, or chest congestion. Denies shortness of breath, difficulty breathing, or wheezing. GASTROINTESTINAL: Denies abdominal pain or distention. Denies nausea, vomiting , or diarrhea. Denies blood in vomitus, stools, or per rectum. Denies black, tarry stools. Denies constipation. GENITOURINARY: Denies difficulty urinating, painful urination, burning, frequency, blood in urine, or discharge. MUSCULOSKELETAL: Denies back or neck pain or stiffness. Denies joint pain or swelling. SKIN: Denies rash, lesions or sores. HEMATOLOGIC : Denies easy bruising or bleeding. LYMPHATIC: Denies swollen, enlarged glands. NEUROLOGICAL: Denies confusion or altered mental status. Denies passing out or loss of consciousness. Denies dizziness or lightheadedness. Denies headache. Denies weakness or paralysis or loss of use of either side. Denies problems with gait or speech. Denies sensory loss, numbness, or tingling. Denies seizures. PSYCHIATRIC: Denies anxiety or stress. Denies depression, suicidal ideation, or homicidal ideation. ALL OTHER SYSTEMS REVIEWED AND NEGATIVE. Dictation was performed using [employer] recognition software PHYSICAL EXAMINATION: GENERAL: Well-appearing, well-nourished and in no acute distress. HEAD: Atraumatic, normocephalic. EYES: Pupils equal round and reactive to light, extraocular movements intact, sclera anicteric, conjunctiva are normal. ENT: Nares patent, oropharynx clear without exudates. Moist mucous membranes. NECK: Normal range of motion, supple without lymphadenopathy LUNGS: Breath sounds clear to auscultation bilaterally and equal. No wheezes rales or rhonchi. HEART: Regular rate and rhythm without murmurs, mechanical valve click heard ABDOMEN: Soft, nontender, nondistended abdomen. No guarding, no rebound. No masses appreciated. Musculoskeletal: Normal range of motion, no pitting or edema. No cyanosis. NEUROLOGICAL: Cranial nerves grossly intact. Normal speech, normal gait. Normal sensory, motor exams PSYCH: Normal mood, normal affect. SKIN: Warm, Dry, normal turgor, no rashes or lesions noted. Physical Exam - Vital signs Vitals: Temp Pulse Resp BP Pulse Ox 98.4 F 108 H 20 139/89 H 95 05/01/17 16:36 05/01/17 16:36 05/01/17 16:36 05/01/17 16:36 05/01/17 16:36 Course - Re-evaluation Re-evalutation: 05/01/17 22:26 Lab report was discussed with patient, he is feeling comfortable heart rate is around 70, he has a prescription for atenolol at home which was failed, but he was not taking. He wished to go home and start taking them and call the etl informatica developer tomorrow to make an appointment. I agree with this plan. - Vital Signs Vital signs: Temp Pulse Resp BP Pulse Ox 98.4 F 108 H 20 127/73 H 96 05/01/17 16:36 05/01/17 16:36 05/01/17 22:01 05/01/17 22:01 05/01/17 22:01 - Laboratory Result Diagrams: 05/01/17 17:05 05/01/17 17:05 Laboratory results interpreted by me: 05/01/17 05/01/17 17:05 17:05 PT 34.2 H Glucose 73 L Calcium 10.4 H - EKG Interpretation by Me EKG shows normal: Sinus rhythm - Sinus tach at the rate of 102 bpm right bundle branch block pattern, nonspecific T-wave inversion in V1 V2 V3 compared to the order cardiogram no changes were noted except the rapid rate. Discharge - Discharge Clinical Impression: Palpitation, H/O prosthetic mitral valve Condition: Good Disposition: HOME, SELF-CARE Instructions: Chest Wall Pain ([facility]), Chest Pain of Unclear Cause ([facility]) Referrals: MAYNOR CARDENAS JR, MD [Primary Care Provider] - Follow up as needed
[2017-05-01 18:12] LABS: PROTHROMBIN TIME 34.2 SEC (11.4-15.4)
--- NOTE | 2017-05-01 21:59 | EKG REPORT ---
SEVERITY:- ABNORMAL ECG - SINUS TACHYCARDIA RIGHT BUNDLE BRANCH BLOCK : Confirmed by: Humera Serrano 01-May-2017 21:58:19
[2017-05-01 22:37] VITALS: BP 125/88
== END 2017-05-01 22:46 | disposition home or self-care (01) ==
LOC: ER 16:28
DX: R00.2 Palpitations (principal); I45.10 Unspecified right bundle-branch block; I10 Essential (primary) hypertension; Z95.2 Presence of prosthetic heart valve; Z98.890 Other specified postprocedural states; Z88.6 Allergy status to analgesic agent; Z87.891 Personal history of nicotine dependence; Z85.47 Personal history of malignant neoplasm of testis; Z92.21 Personal history of antineoplastic chemotherapy
CPT/HCPCS: 36415; 80053; 83735; 84484; 85025; 85610; 93005; 93010; 99285

== ENCOUNTER → 2017-05-09 | Outpatient (CLI) | payer OTHER ==
[2017-05-09 09:17] LABS: PROTHROMBIN TIME 26.3 SEC (11.4-15.4)
== END ==
LOC: OD 08:31
PROVIDERS: ATTEND Pediatrics Pediatric Cardiology
DX: Z95.2 Presence of prosthetic heart valve (principal)
CPT/HCPCS: 36415; 85610

== ENCOUNTER → 2017-05-15 | Outpatient (CLI) | payer OTHER ==
[2017-05-15 08:38] LABS: PROTHROMBIN TIME 30.9 SEC (11.4-15.4)
== END ==
LOC: OD 08:10
PROVIDERS: ATTEND Pediatrics Pediatric Cardiology
DX: Z95.2 Presence of prosthetic heart valve (principal)
CPT/HCPCS: 36415; 85610

== ENCOUNTER → 2017-05-27 | Outpatient (CLI) | payer OTHER | LOC: OD 12:13 | PROVIDERS: ATTEND Pediatrics Pediatric Cardiology | DX: Z95.2 Presence of prosthetic heart valve (principal) ==

== ENCOUNTER 2017-07-17 21:39 | Emergency (ER) | payer OTHER ==
[2017-07-17] MEDS ORDERED: ASPIRIN 325 MG TABLET PO ONE (22:33)
--- NOTE | 2017-07-17 22:39 | ER Document Report ---
ED Cardiac - General Information source: Patient TRAVEL OUTSIDE OF THE [place] IN LAST 30 DAYS: No <NHAN RODRIGUEZ - Last Filed: 07/18/17 05:09> <KRISTINA TODD - Last Filed: 07/18/17 05:57> - General Chief Complaint: Chest Pain Stated Complaint: CHEST PAIN Time Seen by Provider: 07/17/17 22:25 Notes: Mr. Grover is a 41 y.o male with a PMHx of HTN and truncus arteriosus who presents to the ED with palpitations and left sided chest pain that begun around 2100 this evening while he was taking his dog outside. He describes his pain as a sharp pain. He states that he has had this chest pain several years ago when he had tachycardia and his heart rate was in the 150s bpm. Patient does not use oxygen at home normally. He denies any relief from Nitroglycerine. Patient denies any nausea or vomiting. He denies any Hx of DM, HLD, MT or stents. Patient reports that he takes Coumadin and his oven builder is Dr. Cardenas. (NAHN RODRIGUEZ) - Related Data Allergies/Adverse Reactions: aspirin [Aspirin] Allergy (Mild, Verified 05/01/17 16:28) Past Medical History - General Information source: Patient - Social History Smoking Status: Never Smoker Chew tobacco use (# tins/day): No Frequency of alcohol use: Occasional Drug Abuse: None Family History: Reviewed & Not Pertinent Patient has suicidal ideation: No Patient has homicidal ideation: No - Past Medical History Cardiac Medical History: Reports: Hx Hypercholesterolemia, Hx Hypertension Renal/ Medical History: Denies: Hx Peritoneal Dialysis Malignancy Medical History: Reports Hx Testicular 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 Past Surgical History: Reports: Hx Cardiac Catheterization, Hx Cardiac Surgery - aortic & mitral valve replacements, Hx Genitourinary Surgery - L orchiectomy, Hx Orthopedic Surgery, Hx Valve Replacement - Replacement of the aortic and mitral valves - Immunizations Hx Diphtheria, Pertussis, Tetanus Vaccination: Yes <NHAN RODRIGUEZ - Last Filed: 07/18/17 05:09> Review of Systems - Review of Systems Constitutional: No symptoms reported EENT: No symptoms reported Cardiovascular: See HPI, Chest pain - Left sided, sharp, Palpitations Respiratory: No symptoms reported Gastrointestinal: No symptoms reported Genitourinary: No symptoms reported Male Genitourinary: No symptoms reported Musculoskeletal: No symptoms reported Skin: No symptoms reported Hematologic/Lymphatic: No symptoms reported Neurological/Psychological: No symptoms reported -: Yes All other systems reviewed and negative <NHAN RODRIGUEZ - Last Filed: 07/18/17 05:09> Physical Exam <NHAN RODRIGUEZ - Last Filed: 07/18/17 05:09> <KRISTINA TODD - Last Filed: 07/18/17 05:57> - Vital signs Vitals: Resp 29 H 07/17/17 21:55 - Notes Notes: GENERAL: Alert, interacts well. No acute distress. HEAD: Normocephalic, atraumatic. EYES: Pupils equal, round, and reactive to light. Extraocular movements intact. ENT: Oral mucosa moist, tongue midline. NECK: Full range of motion. Supple. Trachea midline. LUNGS: Clear to auscultation bilaterally, no wheezes, rales, or rhonchi. No respiratory distress. Pulse oximetry read 93% good wave form on 2 L. HEART: 2 mechanical clicks heard that are palpable. Slight tachycardia. 2/6 systolic ejection murmur. No gallops or rub. No chest wall tenderness to palpation. ABDOMEN: Soft, non-tender. Non-distended. Normal bowel sounds present in all 4 quadrants. EXTREMITIES: Moves all 4 extremities spontaneously. No edema, radial and dorsalis pedis pulses 2/4 bilaterally. No cyanosis. NEUROLOGICAL: Alert and oriented x3. Normal speech. Biceps and patellar DTRs 2+ bilaterally. PSYCH: Normal affect, normal mood. SKIN: Warm, dry, normal turgor. No rashes or lesions noted. (NHAN RODRIGUEZ) Course - Laboratory Result Diagrams: 07/17/17 21:22 07/17/17 21:22 <NHAN RODRIGUEZ - Last Filed: 07/18/17 05:09> - Laboratory Result Diagrams: 07/17/17 21:22 07/17/17 21:22 <KRISTINA TODD - Last Filed: 07/18/17 05:57> - Re-evaluation Re-evalutation: 07/18/17 03:20 CBC unremarkable, INR subtherapeutic at 1.82, patient will be given a dose of Lovenox and asked to take an additional 2.5 mg of Coumadin at home this evening , after that call Dr. Cardenas first thing in the morning to adjust his medication dosages further, chemistries grossly unremarkable, troponin negative 2 at 0.018 and 0.020, chest x-ray does not show pneumonia or pneumothorax. 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 There is no pulmonary embolus. Patient was initially hypoxic on room air and doing well on 4 L via nasal cannula, after resting in the bed patient's tachycardia and hypoxia resolved, the nasal cannula oxygen was removed, patient had no further chest pain and no further tachycardia, patient was able to be ambulated without difficulty, had a few seconds of hypoxia at 89% and then this resolved as well, was not symptomatic during this time while ambulating. Discussed case with Dr. Rojas the optical glass wet inspector president educational institution at [facility], states the patient does not have any cardiac shunting that would predispose him to hypoxia. Patient was reexamined and no clubbing of the extremities was noted. Patient is not found to have anything that would cause hypoxia but it is currently resolved. Dr. Rojas agrees with discharged home at this point and follow-up over the phone with Dr. Yong arias in the morning regarding his subtherapeutic INR. Patient is discharged home. (KRISTINA TODD) - Vital Signs Vital signs: Temp Pulse Resp BP Pulse Ox 98.2 F 112 H 17 122/81 94 07/17/17 22:08 07/17/17 22:08 07/18/17 04:05 07/18/17 04:05 07/18/17 04:05 - Laboratory Laboratory results interpreted by me: 07/17/17 07/17/17 21:22 21:22 PT 22.1 H BUN 25 H Calcium 10.6 H Albumin 5.2 H - EKG Interpretation by Me Additional EKG results interpreted by me: 07/18/17 03:22 EKG shows sinus tachycardia at a rate of 117, right bundle branch block, ST segment depressions noted in lead V2, V3, V4, V5 and V6, not significantly changed from prior EKG on 05/01/2017, no ST segment elevations per my interpretation. (KRISTINA TODD) Discharge <NHAN RODRIGUEZ - Last Filed: 07/18/17 05:09> <KRISTINA TODD - Last Filed: 07/18/17 05:57> - Discharge Clinical Impression: Hypoxia, Subtherapeutic international normalized ratio (INR) Chest pain Qualifiers: Chest pain type: unspecified Qualified Code(s): R07.9 - Chest pain, unspecified Condition: Stable Disposition: HOME, SELF-CARE Additional Instructions: Please follow-up with Dr. Cardenas first thing in the morning on Friday. You should let him know that your INR was 1.82. Please take an additional 2.5 mg of Coumadin when you get home today. Call Dr. Cardenas and ask him how much he wants you to take otherwise to correct her low INR. There is no evidence of blood clot to your lungs today. No evidence of heart attack. Please return to the emergency department should you develop any new or concerning symptoms, should your racing heart rate return or should you develop difficulty breathing. Referrals: MAYNOR CARDENAS JR, MD [CONSULTING STAFF] - 07/18/17 8:00 am (call the office) Scribe Attestation: 07/18/17 05:53 I personally performed the services described in the documentation, reviewed and edited the documentation which was dictated to the scribe in my presence, and it accurately records my words and actions. (KRISTINA TODD) Scribe Documentation - Scribe Written by Mal:: Mal Fraire, 07/17/17 [id number] acting as scribe for :: Louann <NHAN RODRIGUEZ - Last Filed: 07/18/17 05:09>
[2017-07-17 22:46] LABS: ABSOLUTE EOSINOPHILS # (AUTO) 0.2 10^3/uL (0.0-0.6); ABSOLUTE LYMPHOCYTES (AUTO) 1.3 10^3/uL (0.5-4.7); ABSOLUTE MONOCYTES (AUTO) 0.6 10^3/uL (0.1-1.4); ABSOLUTE NEUT (AUTO) 6.9 10^3/uL (1.7-8.2); BASOPHILS % (AUTO) 0.3 % (0-2); EOSINOPHILS % (AUTO) 1.7 % (0-6); HEMATOCRIT 46.2 % (37.9-51.0); HEMOGLOBIN 15.6 g/dL (13.5-17.0); LYMPHOCYTES % (AUTO) 14.4 % (13-45); MEAN CORPUSCULAR HGB CONC 33.8 g/dL (32.0-36.0); MEAN CORPUSCULAR VOLUME 86 fl (80-97); PLATELET COUNT 291 10^3/uL (150-450); RED BLOOD COUNT 5.39 10^6/uL (4.35-5.55); RED CELL DISTRIBUTION WIDTH 13.1 % (11.5-14.0); SEGMENTED NEUTROPHILS % (AUTO) 76.6 % (42-78); TOTAL CELLS COUNTED % (AUTO) 100 %
[2017-07-17 22:48] LABS: INTERNATIONAL RATION (INR) 1.82; PROTHROMBIN TIME 22.1 SEC (11.4-15.4)
[2017-07-17 22:51] LABS: ALANINE AMINOTRANSFERASE 30 U/L (21-72); ALBUMIN 5.2 g/dL (3.5-5.0); ALKALINE PHOSPHATASE 86 U/L (38-126); ANION GAP 14 (5-19); ASPARTATE AMINO TRANSFERASE 39 U/L (17-59); BILIRUBIN,DIRECT 0.2 mg/dL (0.0-0.4); BILIRUBIN,TOTAL 0.5 mg/dL (0.2-1.3); BLOOD UREA NITROGEN 25 mg/dL (7-20); CALCIUM 10.6 mg/dL (8.4-10.2); CARBON DIOXIDE 23 mmol/L (22-30); CHLORIDE 104 mmol/L (98-107); CREATINE KINASE 169 U/L (55-170); GLUCOSE 85 mg/dL (75-110); POTASSIUM 4.8 mmol/L (3.6-5.0); SODIUM 140.7 mmol/L (137-145); TOTAL PROTEIN 7.8 g/dL (6.3-8.2)
--- NOTE | 2017-07-17 23:01 | RADIOLOGY REPORT (SQ) ---
EXAM DESCRIPTION: CHEST SINGLE VIEW CLINICAL HISTORY: 41 years Male, chest pain, SOB COMPARISON: 08/08/17 NUMBER OF VIEWS/TECHNIQUE: 1/AP LIMITATIONS: None. FINDINGS: Normal lung volume, clear parenchyma, or granulomatous disease, two prosthetic cardiac valves, and sternotomy. IMPRESSION: No acute cardiopulmonary findings.
[2017-07-17 23:09] LABS: CREATINE KINASE MB 2.68 ng/mL (<4.55); TROPONIN I 0.018 ng/mL
--- NOTE | 2017-07-18 01:06 | RADIOLOGY REPORT (SQ) ---
EXAM DESCRIPTION: CTA CHEST CLINICAL HISTORY: 41 years Male, chest pain, hypoxia, r/o PE, h/o truncus ateriosus COMPARISON: None. TECHNIQUE: 63 mL Isovue-370 IV contrast. Multiplanar reformat. This exam was performed according to our departmental dose-optimization program, which includes automated exposure control, adjustment of the mA and/or kV according to patient size and/or use of iterative reconstruction technique. 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 Mild atresia bilateral pulmonary arteries. 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 No pulmonary embolus, and no right ventricular strain. Aortic and pulmonic valve replacement. Focal emphysematous/bullous changes of the left lung base. Sternotomy. Low attenuation likely benign cyst/hemangioma of the right liver measure up to 0.7 cm each. Numerous bilateral likely benign cysts of the kidneys partially imaged suggesting polycystic kidney disease. Inferior neck, axillae, mediastinum, lungs, lymphatics, upper abdomen, and musculoskeleton appear otherwise unremarkable. Impression: 1. Postsurgical and developmental changes consistent with history of truncus arteriosus. 4.0 cm ascending thoracic aortic aneurysm. 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 2. No pulmonary embolus.
[2017-07-18] MEDS ORDERED: ENOXAPARIN SODIUM INJ 80 MG/0.8 ML DISP.SYRIN SUBCUT ONE (03:19)
[2017-07-18 04:11] VITALS: BP 122/81
--- NOTE | 2017-07-18 06:47 | EKG REPORT ---
SEVERITY:- ABNORMAL ECG - SINUS TACHYCARDIA RIGHT BUNDLE BRANCH BLOCK : Confirmed by: Hernandez Ramirez MD 18-Jul-2017 06:46:22
== END 2017-07-18 04:12 | disposition home or self-care (01) ==
LOC: ER 21:39
DX: R09.02 Hypoxemia (principal); R79.1 Abnormal coagulation profile; R07.9 Chest pain, unspecified; I10 Essential (primary) hypertension; E78.00 Pure hypercholesterolemia, unspecified; Z88.6 Allergy status to analgesic agent; Z85.47 Personal history of malignant neoplasm of testis; Z95.2 Presence of prosthetic heart valve
CPT/HCPCS: 93005; 99285; 96372; 36415; 82553; 82550; 85025; 85610; 80053; 84484; 71045; 71275; 93010; J1650

== ENCOUNTER → 2017-10-28 | Outpatient (CLI) | payer OTHER ==
[2017-10-28 15:19] LABS: INTERNATIONAL RATION (INR) 1.95; PROTHROMBIN TIME 23.2 SEC (11.4-15.4)
== END ==
LOC: OD 14:25
PROVIDERS: ATTEND Pediatrics Pediatric Cardiology
DX: Z95.2 Presence of prosthetic heart valve (principal)
CPT/HCPCS: 36415; 85610

== ENCOUNTER → 2017-11-04 | Outpatient (CLI) | payer OTHER ==
[2017-11-04 12:45] LABS: INTERNATIONAL RATION (INR) 2.36; PROTHROMBIN TIME 26.9 SEC (11.4-15.4)
== END ==
LOC: OD 11:19
PROVIDERS: ATTEND Pediatrics Pediatric Cardiology
DX: Z95.2 Presence of prosthetic heart valve (principal)
CPT/HCPCS: 36415; 85610

== ENCOUNTER → 2017-11-11 | Outpatient (CLI) | payer OTHER ==
[2017-11-11 14:12] LABS: INTERNATIONAL RATION (INR) 3.84; PROTHROMBIN TIME 39.5 SEC (11.4-15.4)
== END ==
LOC: OD 12:33
PROVIDERS: ATTEND Pediatrics Pediatric Cardiology
DX: Z95.2 Presence of prosthetic heart valve (principal)
CPT/HCPCS: 36415; 85610

== ENCOUNTER → 2017-11-18 | Outpatient (CLI) | payer OTHER ==
[2017-11-18 11:57] LABS: INTERNATIONAL RATION (INR) 3.07; PROTHROMBIN TIME 33.2 SEC (11.4-15.4)
== END ==
LOC: OD 11:09
PROVIDERS: ATTEND Pediatrics Pediatric Cardiology
DX: Z51.81 Encounter for therapeutic drug level monitoring (principal); Z79.01 Long term (current) use of anticoagulants; Z95.2 Presence of prosthetic heart valve
CPT/HCPCS: 36415; 85610

== ENCOUNTER → 2017-11-25 | Outpatient (CLI) | payer OTHER ==
[2017-11-25 13:44] LABS: INTERNATIONAL RATION (INR) 3.03; PROTHROMBIN TIME 32.8 SEC (11.4-15.4)
== END ==
LOC: OD 12:24
PROVIDERS: ATTEND Pediatrics Pediatric Cardiology
DX: Z95.2 Presence of prosthetic heart valve (principal); Z79.01 Long term (current) use of anticoagulants
CPT/HCPCS: 36415; 85610

== ENCOUNTER → 2017-12-02 | Outpatient (CLI) | payer OTHER ==
[2017-12-02 12:09] LABS: INTERNATIONAL RATION (INR) 3.17
== END ==
LOC: OD 11:29
PROVIDERS: ATTEND Pediatrics Pediatric Cardiology
DX: Z95.2 Presence of prosthetic heart valve (principal)
CPT/HCPCS: 36415; 85610

== ENCOUNTER → 2017-12-09 | Outpatient (CLI) | payer OTHER ==
[2017-12-09 14:23] LABS: INTERNATIONAL RATION (INR) 1.78; PROTHROMBIN TIME 21.6 SEC (11.4-15.4)
== END ==
LOC: OD 13:34
PROVIDERS: ATTEND Pediatrics Pediatric Cardiology
DX: Z51.81 Encounter for therapeutic drug level monitoring (principal); Z79.01 Long term (current) use of anticoagulants; Z95.2 Presence of prosthetic heart valve
CPT/HCPCS: 36415; 85610

== ENCOUNTER → 2017-12-16 | Outpatient (CLI) | payer OTHER ==
[2017-12-16 17:01] LABS: INTERNATIONAL RATION (INR) 2.65; PROTHROMBIN TIME 29.5 SEC (11.4-15.4)
== END ==
LOC: OD 15:43
PROVIDERS: ATTEND Pediatrics Pediatric Cardiology
DX: Z51.81 Encounter for therapeutic drug level monitoring (principal); Z79.01 Long term (current) use of anticoagulants; Z95.2 Presence of prosthetic heart valve
CPT/HCPCS: 36415; 85610

== ENCOUNTER → 2018-01-02 | Outpatient (CLI) | payer OTHER ==
[2018-01-02 11:17] LABS: INTERNATIONAL RATION (INR) 4.48; PROTHROMBIN TIME 44.6 SEC (11.4-15.4)
== END ==
LOC: OD 10:22
PROVIDERS: ATTEND Pediatrics Pediatric Cardiology
DX: Z95.2 Presence of prosthetic heart valve (principal)
CPT/HCPCS: 36415; 85610

== ENCOUNTER → 2018-01-06 | Outpatient (CLI) | payer OTHER ==
[2018-01-06 12:53] LABS: INTERNATIONAL RATION (INR) 1.53
[2018-01-06 12:54] LABS: PROTHROMBIN TIME 19.2 SEC (11.4-15.4)
[2018-01-09 10:01] LABS: INTERNATIONAL RATION (INR) 1.42; PROTHROMBIN TIME 18.1 SEC (11.4-15.4)
== END ==
LOC: OD 11:14
PROVIDERS: ATTEND Pediatrics Pediatric Cardiology
DX: Z95.2 Presence of prosthetic heart valve (principal)
CPT/HCPCS: 36415; 85610

== ENCOUNTER → 2018-01-13 | Outpatient (CLI) | payer OTHER ==
[2018-01-13 11:16] LABS: INTERNATIONAL RATION (INR) 2.19; PROTHROMBIN TIME 25.4 SEC (11.4-15.4)
== END ==
LOC: OD 10:33
PROVIDERS: ATTEND Pediatrics Pediatric Cardiology
DX: Z51.81 Encounter for therapeutic drug level monitoring (principal); Z79.01 Long term (current) use of anticoagulants; Z95.2 Presence of prosthetic heart valve
CPT/HCPCS: 36415; 85610

== ENCOUNTER → 2018-01-16 | Outpatient (CLI) | payer OTHER ==
[2018-01-16 11:04] LABS: INTERNATIONAL RATION (INR) 2.66; PROTHROMBIN TIME 29.6 SEC (11.4-15.4)
== END ==
LOC: OD 08:34
PROVIDERS: ATTEND Pediatrics Pediatric Cardiology
DX: Z95.2 Presence of prosthetic heart valve (principal)
CPT/HCPCS: 36415; 85610

== ENCOUNTER → 2018-01-26 | Outpatient (CLI) | payer OTHER ==
[2018-01-26 13:23] LABS: PROTHROMBIN TIME 52.5 SEC (11.4-15.4)
[2018-01-26 13:24] LABS: INTERNATIONAL RATION (INR) 5.51
[2018-01-27 13:41] LABS: INTERNATIONAL RATION (INR) 5.04; PROTHROMBIN TIME 48.9 SEC (11.4-15.4)
== END ==
LOC: OD 11:38
PROVIDERS: ATTEND Pediatrics Pediatric Cardiology
DX: Z95.2 Presence of prosthetic heart valve (principal)
CPT/HCPCS: 36415; 85610

== ENCOUNTER → 2018-02-05 | Outpatient (CLI) | payer OTHER ==
[2018-02-05 14:30] LABS: INTERNATIONAL RATION (INR) 3.08; PROTHROMBIN TIME 33.2 SEC (11.4-15.4)
== END ==
LOC: OD 13:35
PROVIDERS: ATTEND Pediatrics Pediatric Cardiology
DX: Z95.2 Presence of prosthetic heart valve (principal)
CPT/HCPCS: 36415; 85610

== ENCOUNTER → 2018-02-17 | Outpatient (CLI) | payer OTHER ==
[2018-02-17 13:24] LABS: INTERNATIONAL RATION (INR) 3.27; PROTHROMBIN TIME 34.8 SEC (11.4-15.4)
== END ==
LOC: OD 12:36
PROVIDERS: ATTEND Pediatrics Pediatric Cardiology
DX: Z95.2 Presence of prosthetic heart valve (principal)
CPT/HCPCS: 36415; 85610

== ENCOUNTER → 2018-03-06 | Outpatient (CLI) | payer OTHER ==
[2018-03-06 09:26] LABS: PROTHROMBIN TIME 23.6 SEC (11.4-15.4)
== END ==
LOC: OD 08:37
PROVIDERS: ATTEND Pediatrics Pediatric Cardiology
DX: Z95.2 Presence of prosthetic heart valve (principal)
CPT/HCPCS: 36415; 85610

== ENCOUNTER → 2018-03-09 | Outpatient (CLI) | payer OTHER ==
[2018-03-09 08:57] LABS: HEMATOCRIT 40.5 % (37.9-51.0); HEMOGLOBIN 13.9 g/dL (13.5-17.0); MEAN CORPUSCULAR HEMOGLOBIN 29.1 pg (27.0-33.4); MEAN CORPUSCULAR HGB CONC 34.4 g/dL (32.0-36.0); MEAN CORPUSCULAR VOLUME 85 fl (80-97); PLATELET COUNT 222 10^3/uL (150-450); RED BLOOD COUNT 4.78 10^6/uL (4.35-5.55); RED CELL DISTRIBUTION WIDTH 13.7 % (11.5-14.0); WHITE BLOOD COUNT 4.1 10^3/uL (4.0-10.5)
[2018-03-09 09:22] LABS: ALANINE AMINOTRANSFERASE 22 U/L (21-72); ALBUMIN 4.3 g/dL (3.5-5.0); ALKALINE PHOSPHATASE 81 U/L (38-126); ANION GAP 9 (5-19); ASPARTATE AMINO TRANSFERASE 26 U/L (17-59); BILIRUBIN,DIRECT 0.2 mg/dL (0.0-0.4); BILIRUBIN,TOTAL 0.4 mg/dL (0.2-1.3); BLOOD UREA NITROGEN 24 mg/dL (7-20); CALCIUM 9.5 mg/dL (8.4-10.2); CARBON DIOXIDE 27 mmol/L (22-30); CHLORIDE 104 mmol/L (98-107); GLUCOSE 98 mg/dL (75-110); POTASSIUM 4.9 mmol/L (3.6-5.0); SODIUM 139.7 mmol/L (137-145); TOTAL PROTEIN 6.9 g/dL (6.3-8.2); TRIGLYCERIDES 157 mg/dL (<150)
[2018-03-09 09:32] LABS: DIRECT LDL 113 mg/dL (<100)
[2018-03-09 09:40] LABS: VLDL CHOLESTEROL 31.4 mg/dL (10-31)
== END ==
LOC: OD 07:27
PROVIDERS: ATTEND Physician Assistant
DX: Z13.1 Encounter for screening for diabetes mellitus (principal); Z13.220 Encounter for screening for lipoid disorders
CPT/HCPCS: 36415; 80053; 80061; 85027

== ENCOUNTER → 2018-03-11 | Outpatient (CLI) | payer OTHER ==
[2018-03-11 13:51] LABS: INTERNATIONAL RATION (INR) 2.16; PROTHROMBIN TIME 25.1 SEC (11.4-15.4)
== END ==
LOC: OD 12:38
PROVIDERS: ATTEND Pediatrics Pediatric Cardiology
DX: Z51.81 Encounter for therapeutic drug level monitoring (principal); Z95.2 Presence of prosthetic heart valve; Z79.01 Long term (current) use of anticoagulants
CPT/HCPCS: 36415; 85610

== ENCOUNTER → 2018-03-17 | Outpatient (CLI) | payer OTHER ==
[2018-03-17 14:36] LABS: INTERNATIONAL RATION (INR) 3.71
[2018-03-17 14:38] LABS: PROTHROMBIN TIME 38.5 SEC (11.4-15.4)
== END ==
LOC: OD 13:22
PROVIDERS: ATTEND Pediatrics Pediatric Cardiology
DX: Z95.2 Presence of prosthetic heart valve (principal)
CPT/HCPCS: 36415; 85610

== ENCOUNTER → 2018-03-20 | Outpatient (CLI) | payer OTHER ==
[2018-03-20 10:43] LABS: INTERNATIONAL RATION (INR) 2.18; PROTHROMBIN TIME 25.3 SEC (11.4-15.4)
== END ==
LOC: OD 09:21
PROVIDERS: ATTEND Pediatrics Pediatric Cardiology
DX: Z95.2 Presence of prosthetic heart valve (principal)
CPT/HCPCS: 36415; 85610

== ENCOUNTER → 2018-03-23 | Outpatient (CLI) | payer OTHER ==
[2018-03-23 18:10] LABS: INTERNATIONAL RATION (INR) 2.52; PROTHROMBIN TIME 28.4 SEC (11.4-15.4)
== END ==
LOC: OD 16:50
PROVIDERS: ATTEND Pediatrics Pediatric Cardiology
DX: Z51.81 Encounter for therapeutic drug level monitoring (principal); Z79.01 Long term (current) use of anticoagulants; Z95.2 Presence of prosthetic heart valve
CPT/HCPCS: 36415; 85610

== ENCOUNTER → 2018-04-03 | Outpatient (CLI) | payer OTHER ==
[2018-04-03 09:46] LABS: INTERNATIONAL RATION (INR) 2.79; PROTHROMBIN TIME 30.7 SEC (11.4-15.4)
== END ==
LOC: OD 08:27
PROVIDERS: ATTEND Pediatrics Pediatric Cardiology
DX: Z95.2 Presence of prosthetic heart valve (principal)
CPT/HCPCS: 36415; 85610

== ENCOUNTER → 2018-04-08 | Outpatient (CLI) | payer OTHER ==
[2018-04-08 09:34] LABS: INTERNATIONAL RATION (INR) 2.95; PROTHROMBIN TIME 32.1 SEC (11.4-15.4)
== END ==
LOC: OD 08:14
PROVIDERS: ATTEND Pediatrics Pediatric Cardiology
DX: Z95.2 Presence of prosthetic heart valve (principal)
CPT/HCPCS: 36415; 85610

== ENCOUNTER → 2018-04-14 | Outpatient (CLI) | payer OTHER ==
[2018-04-14 13:43] LABS: INTERNATIONAL RATION (INR) 2.53; PROTHROMBIN TIME 28.5 SEC (11.4-15.4)
== END ==
LOC: OD 12:40
PROVIDERS: ATTEND Pediatrics Pediatric Cardiology
DX: Z51.81 Encounter for therapeutic drug level monitoring (principal); Z95.2 Presence of prosthetic heart valve; Z79.01 Long term (current) use of anticoagulants
CPT/HCPCS: 36415; 85610

== ENCOUNTER → 2018-04-21 | Outpatient (CLI) | payer OTHER ==
[2018-04-21 13:49] LABS: INTERNATIONAL RATION (INR) 2.27; PROTHROMBIN TIME 26.1 SEC (11.4-15.4)
== END ==
LOC: OD 12:21
PROVIDERS: ATTEND Pediatrics Pediatric Cardiology
DX: Z51.81 Encounter for therapeutic drug level monitoring (principal); Z79.01 Long term (current) use of anticoagulants; Z95.2 Presence of prosthetic heart valve
CPT/HCPCS: 36415; 85610

== ENCOUNTER → 2018-04-28 | Outpatient (CLI) | payer OTHER ==
[2018-04-28 12:37] LABS: INTERNATIONAL RATION (INR) 2.23; PROTHROMBIN TIME 25.8 SEC (11.4-15.4)
== END ==
LOC: OD 11:56
PROVIDERS: ATTEND Pediatrics Pediatric Cardiology
DX: Z95.2 Presence of prosthetic heart valve (principal)
CPT/HCPCS: 36415; 85610

== ENCOUNTER → 2018-05-05 | Outpatient (CLI) | payer OTHER ==
[2018-05-05 16:46] LABS: INTERNATIONAL RATION (INR) 2.17; PROTHROMBIN TIME 25.2 SEC (11.4-15.4)
== END ==
LOC: OD 16:03
PROVIDERS: ATTEND Pediatrics Pediatric Cardiology
DX: Z95.2 Presence of prosthetic heart valve (principal)
CPT/HCPCS: 36415; 85610

== ENCOUNTER → 2018-05-22 | Outpatient (CLI) | payer OTHER ==
[2018-05-22 10:20] LABS: INTERNATIONAL RATION (INR) 3.46; PROTHROMBIN TIME 36.4 SEC (11.4-15.4)
[2018-05-22 10:22] LABS: PARTIAL THROMBOPLASTIN TIME 79.2 SEC (23.5-35.8)
== END ==
LOC: OD 09:20
PROVIDERS: ATTEND Pediatrics Pediatric Cardiology
DX: Z51.81 Encounter for therapeutic drug level monitoring (principal); Z95.2 Presence of prosthetic heart valve; Z79.01 Long term (current) use of anticoagulants
CPT/HCPCS: 36415; 85610; 85730

== ENCOUNTER → 2018-05-29 | Outpatient (CLI) | payer OTHER ==
[2018-05-29 09:19] LABS: PROTHROMBIN TIME 22.7 SEC (11.4-15.4)
== END ==
LOC: OD 08:16
PROVIDERS: ATTEND Pediatrics Pediatric Cardiology
DX: Z51.81 Encounter for therapeutic drug level monitoring (principal); Z95.2 Presence of prosthetic heart valve; Z79.01 Long term (current) use of anticoagulants
CPT/HCPCS: 36415; 85610

== ENCOUNTER → 2018-06-03 | Outpatient (CLI) | payer OTHER ==
[2018-06-03 12:50] LABS: INTERNATIONAL RATION (INR) 1.39; PROTHROMBIN TIME 17.8 SEC (11.4-15.4)
== END ==
LOC: OD 11:38
PROVIDERS: ATTEND Pediatrics Pediatric Cardiology
DX: Z51.81 Encounter for therapeutic drug level monitoring (principal); Z79.01 Long term (current) use of anticoagulants; Z95.2 Presence of prosthetic heart valve
CPT/HCPCS: 36415; 85610

== ENCOUNTER → 2018-06-09 | Outpatient (CLI) | payer OTHER ==
[2018-06-09 13:35] LABS: INTERNATIONAL RATION (INR) 3.25
[2018-06-09 13:36] LABS: PROTHROMBIN TIME 34.6 SEC (11.4-15.4)
== END ==
LOC: OD 12:54
PROVIDERS: ATTEND Pediatrics Pediatric Cardiology
DX: Z95.2 Presence of prosthetic heart valve (principal)
CPT/HCPCS: 36415; 85610

== ENCOUNTER → 2018-06-16 | Outpatient (CLI) | payer OTHER ==
[2018-06-16 15:32] LABS: INTERNATIONAL RATION (INR) 3.75; PROTHROMBIN TIME 38.8 SEC (11.4-15.4)
== END ==
LOC: OD 14:50
PROVIDERS: ATTEND Pediatrics Pediatric Cardiology
DX: Z51.81 Encounter for therapeutic drug level monitoring (principal); Z79.01 Long term (current) use of anticoagulants; Z95.2 Presence of prosthetic heart valve
CPT/HCPCS: 36415; 85610

== ENCOUNTER 2018-06-23 10:38 | Emergency (ER) | payer OTHER ==
--- NOTE | 2018-06-23 11:00 | ER Document Report ---
ED Dialysis Cath/Shunt Problem - General Stated Complaint: OUTSIDE NOSE LACERATION Time Seen by Provider: 06/23/18 10:49 Primary Care Provider: MAYNOR CARDENAS JR, MD [CONSULTING STAFF] - Follow up in 3-5 days TRAVEL OUTSIDE OF THE [place] IN LAST 30 DAYS: No - HPI Notes: Patient is a 42-year-old male with a history of valve replacement in his heart and currently on Coumadin who presents to the emergency department complaining of a scab to the right outside nostril that has not stopped bleeding since this morning. He has no other concerns or complaints. He has been trying compresses with minimal relief of the bleeding. He is otherwise eating and drinking without difficulty. He is urinating normally. Patient was on his way to get his INR checked when it started bleeding. Denies any headache, fever, dizziness, head injury, neck pain, changes in vision/speech/mentation/hearing, URI, sore throat, chest pain, palpitations, syncope, cough, shortness of breath, wheeze, dyspnea, abdominal pain, nausea/vomiting/diarrhea, urinary retention, dysuria, hematuria, or rash. - Related Data Allergies/Adverse Reactions: aspirin [Aspirin] Allergy (Mild, Verified 05/01/17 16:28) Past Medical History - Social History Smoking Status: Never Smoker Family History: Reviewed & Not Pertinent - Past Medical History Cardiac Medical History: Reports: Hx Hypercholesterolemia, Hx Hypertension Renal/ Medical History: Denies: Hx Peritoneal Dialysis Malignancy Medical History: Reports Hx Testicular 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 Past Surgical History: Reports: Hx Cardiac Catheterization, Hx Cardiac Surgery - aortic & mitral valve replacements, Hx Genitourinary Surgery - L orchiectomy, Hx Orthopedic Surgery, Hx Valve Replacement - Replacement of the aortic and mitral valves - Immunizations Hx Diphtheria, Pertussis, Tetanus Vaccination: Yes Review of Systems - Review of Systems -: Yes All other systems reviewed and negative Physical Exam - Vital signs Vitals: Pulse Ox 97 06/23/18 10:46 - Notes Notes: PHYSICAL EXAMINATION: GENERAL: Well-appearing, well-nourished and in no acute distress. HEAD: Atraumatic, normocephalic. EYES: Pupils equal round and reactive to light, extraocular movements intact, sclera anicteric, conjunctiva are normal. ENT: EAC clear b/l. TM's intact b/l without erythema, fluid, or perforation. Nares patent and without discharge. oropharynx clear without exudates. No tonsilar hypertrophy or erythema. Moist mucous membranes. No sinus tenderness. NECK: Normal range of motion, supple without lymphadenopathy LUNGS: Breath sounds clear to auscultation bilaterally and equal. No wheezes rales or rhonchi. HEART: Regular rate and rhythm without murmurs, rubs, gallops. Clicks heard from replacement valves. Musculoskeletal: FROM to passive/active. Strength 5+/5. Extremities: No cyanosis, clubbing, or edema b/l. Peripheral pulses 2+. Capillary refill less than 3 seconds. NEUROLOGICAL: Normal speech, normal gait. PSYCH: Normal mood, normal affect. SKIN: Rt nostril (outside): there is a very small area, scabbed, without active bleeding. Non-tender. No fluctuance, streaks, or purulence. Non-tender. Pt had it compressed with gauze and an ice pack prior to my eval which stopped the bleeding at this time. Course - Re-evaluation Re-evalutation: 06/23/18 11:00 Bleeding is currently controlled. We will monitor for any recurrence and check his INR. Patient appears otherwise hemodynamically stable. Vitals acceptable without significant tachycardia, tachypnea, hypoxia, or hypotension. 06/23/18 12:20 Patient is an afebrile, well-hydrated 42-year-old male who presents emergency department with bleeding from the outside of his nose that is since resolved. Vitals are acceptable without significant tachycardia, tachypnea, or hypoxia. PE is otherwise unremarkable. He is nontoxic-appearing and is tolerating p.o. without difficulties. INR 3.4 which is in his range of 2.5-3.5. Patient will be contacting his provider about this result for any adjustments if needed. No other labs or imaging warranted. Recheck with your PCM this week as scheduled. Return to the ED with any other worsening/concerning symptoms. Patient is in agreement. 06/23/18 13:12 Upon discharge, pt had recurrence of bleeding, conservative measures failed so a touch of cautery was performed and dermabond placed. Hemostasis achieved. Pt discharged in stable condition. - Vital Signs Vital signs: Temp Pulse Resp BP Pulse Ox 131/77 H 100 06/23/18 12:00 06/23/18 12:01 - Laboratory Laboratory results interpreted by me: 06/23/18 10:55 PT 35.9 H Procedures - Laceration/Wound Repair Right Nose Time completed: 13:10 Wound length (cm): 0.1 Wound's Depth, Shape: Superficial, Other - leaky small vessel on rt nare Wound Repaired With: Dermabond Complications: No Discharge - Discharge Clinical Impression: Bleeding Condition: Stable Disposition: HOME, SELF-CARE Additional Instructions: Keep the skin clean Wash with soap and water Tylenol/ibuprofen if needed Take medication as directed Monitor for any worsening symptoms Recheck with your PCM in 3-5 days Return to the ED with any worsening symptoms and/or development of fever, headache, chest pain, palpitations, syncope, shortness of breath, trouble breathing, abdominal pain, n/v/d, abscess, purulent discharge, red streaks, worsening swelling, or other worsening symptoms that are concerning to you. Forms: Elevated Blood Pressure Referrals: MAYNOR CARDENAS JR, MD [CONSULTING STAFF] - Follow up in 3-5 days
[2018-06-23 11:21] LABS: PROTHROMBIN TIME 35.9 SEC (11.4-15.4)
[2018-06-23 12:28] VITALS: BP 131/77
== END 2018-06-23 13:30 | disposition home or self-care (01) ==
LOC: ER 10:38
DX: R58 Hemorrhage, not elsewhere classified (principal); R23.4 Changes in skin texture; I10 Essential (primary) hypertension; Z79.01 Long term (current) use of anticoagulants; Z95.2 Presence of prosthetic heart valve; Z85.47 Personal history of malignant neoplasm of testis; Z92.21 Personal history of antineoplastic chemotherapy; Z88.6 Allergy status to analgesic agent
CPT/HCPCS: 36415; 85610; 99283

== ENCOUNTER → 2018-06-30 | Outpatient (CLI) | payer OTHER ==
[2018-06-30 17:40] LABS: PROTHROMBIN TIME 31.7 SEC (11.4-15.4)
== END ==
LOC: OD 16:36
PROVIDERS: ATTEND Pediatrics Pediatric Cardiology
DX: Z51.81 Encounter for therapeutic drug level monitoring (principal); Z95.2 Presence of prosthetic heart valve; Z79.01 Long term (current) use of anticoagulants
CPT/HCPCS: 36415; 85610

== ENCOUNTER → 2018-07-10 | Outpatient (CLI) | payer OTHER ==
[2018-07-10 14:04] LABS: INTERNATIONAL RATION (INR) 3.65; PROTHROMBIN TIME 37.9 SEC (11.4-15.4)
== END ==
LOC: OD 12:34
PROVIDERS: ATTEND Pediatrics Pediatric Cardiology
DX: Z95.2 Presence of prosthetic heart valve (principal)
CPT/HCPCS: 36415; 85610

== ENCOUNTER → 2018-07-16 | Outpatient (CLI) | payer OTHER ==
[2018-07-16 15:18] LABS: INTERNATIONAL RATION (INR) 2.55; PROTHROMBIN TIME 28.6 SEC (11.4-15.4)
== END ==
LOC: OD 13:54
PROVIDERS: ATTEND Pediatrics Pediatric Cardiology
DX: Z51.81 Encounter for therapeutic drug level monitoring (principal); Z79.01 Long term (current) use of anticoagulants; Z95.2 Presence of prosthetic heart valve
CPT/HCPCS: 36415; 85610

== ENCOUNTER → 2018-07-23 | Outpatient (CLI) | payer OTHER ==
[2018-07-23 17:32] LABS: INTERNATIONAL RATION (INR) 3.35; PROTHROMBIN TIME 35.5 SEC (11.4-15.4)
== END ==
LOC: OD 15:49
PROVIDERS: ATTEND Pediatrics Pediatric Cardiology
DX: Z51.81 Encounter for therapeutic drug level monitoring (principal); Z79.01 Long term (current) use of anticoagulants; Z95.2 Presence of prosthetic heart valve
CPT/HCPCS: 36415; 85610

== ENCOUNTER → 2018-07-31 | Outpatient (CLI) | payer OTHER ==
[2018-07-31 09:47] LABS: INTERNATIONAL RATION (INR) 3.02; PROTHROMBIN TIME 32.7 SEC (11.4-15.4)
== END ==
LOC: OD 08:39
PROVIDERS: ATTEND Pediatrics Pediatric Cardiology
DX: Z95.2 Presence of prosthetic heart valve (principal)
CPT/HCPCS: 36415; 85610

== ENCOUNTER → 2018-08-07 | Outpatient (CLI) | payer OTHER ==
[2018-08-07 09:38] LABS: INTERNATIONAL RATION (INR) 3.62; PROTHROMBIN TIME 37.7 SEC (11.4-15.4)
== END ==
LOC: OD 08:04
PROVIDERS: ATTEND Pediatrics Pediatric Cardiology
DX: Z95.2 Presence of prosthetic heart valve (principal); Z98.890 Other specified postprocedural states
CPT/HCPCS: 36415; 85610

== ENCOUNTER → 2018-08-21 | Outpatient (CLI) | payer OTHER ==
[2018-08-21 10:50] LABS: INTERNATIONAL RATION (INR) 5.14; PROTHROMBIN TIME 49.8 SEC (11.4-15.4)
[2018-08-21 14:18] LABS: INTERNATIONAL RATION (INR) 4.71; PROTHROMBIN TIME 46.4 SEC (11.4-15.4)
== END ==
LOC: OD 08:35
PROVIDERS: ATTEND Pediatrics Pediatric Cardiology
DX: Z98.2 Presence of cerebrospinal fluid drainage device (principal); Z98.890 Other specified postprocedural states
CPT/HCPCS: 36415; 85610

== ENCOUNTER → 2018-08-24 | Outpatient (CLI) | payer OTHER ==
[2018-08-24 12:34] LABS: INTERNATIONAL RATION (INR) 1.83
== END ==
LOC: OD 09:34
PROVIDERS: ATTEND Pediatrics Pediatric Cardiology
DX: Z51.81 Encounter for therapeutic drug level monitoring (principal); Z79.01 Long term (current) use of anticoagulants; Z95.2 Presence of prosthetic heart valve; Z98.890 Other specified postprocedural states
CPT/HCPCS: 36415; 85610

== ENCOUNTER → 2018-08-28 | Outpatient (CLI) | payer OTHER ==
[2018-08-28 09:19] LABS: INTERNATIONAL RATION (INR) 2.06; PROTHROMBIN TIME 24.2 SEC (11.4-15.4)
== END ==
LOC: OD 08:11
PROVIDERS: ATTEND Pediatrics Pediatric Cardiology
DX: Z51.81 Encounter for therapeutic drug level monitoring (principal); Z79.01 Long term (current) use of anticoagulants; Z95.2 Presence of prosthetic heart valve; Z98.890 Other specified postprocedural states
CPT/HCPCS: 36415; 85610

== ENCOUNTER → 2018-09-04 | Outpatient (CLI) | payer OTHER ==
[2018-09-04 08:46] LABS: INTERNATIONAL RATION (INR) 3.59
[2018-09-04 08:48] LABS: PROTHROMBIN TIME 37.5 SEC (11.4-15.4)
== END ==
LOC: OD 08:04
PROVIDERS: ATTEND Pediatrics Pediatric Cardiology
DX: Z95.2 Presence of prosthetic heart valve (principal); Z98.890 Other specified postprocedural states
CPT/HCPCS: 36415; 85610

== ENCOUNTER → 2018-09-18 | Outpatient (CLI) | payer OTHER ==
[2018-09-18 10:31] LABS: INTERNATIONAL RATION (INR) 2.42; PROTHROMBIN TIME 27.5 SEC (11.4-15.4)
== END ==
LOC: OD 09:27
PROVIDERS: ATTEND Pediatrics Pediatric Cardiology
DX: Z95.2 Presence of prosthetic heart valve (principal); Z98.890 Other specified postprocedural states
CPT/HCPCS: 36415; 85610

== ENCOUNTER → 2018-09-25 | Outpatient (CLI) | payer OTHER ==
[2018-09-25 09:58] LABS: INTERNATIONAL RATION (INR) 3.31; PROTHROMBIN TIME 35.2 SEC (11.4-15.4)
== END ==
LOC: OD 08:44
PROVIDERS: ATTEND Pediatrics Pediatric Cardiology
DX: Z48.812 Encounter for surgical aftercare following surgery on the circulatory system (principal); Z95.2 Presence of prosthetic heart valve; Z98.890 Other specified postprocedural states
CPT/HCPCS: 36415; 85610

== ENCOUNTER → 2018-10-02 | Outpatient (CLI) | payer OTHER ==
[2018-10-02 11:47] LABS: INTERNATIONAL RATION (INR) 4.06; PROTHROMBIN TIME 41.3 SEC (11.4-15.4)
== END ==
LOC: OD 08:34
PROVIDERS: ATTEND Pediatrics Pediatric Cardiology
DX: Z95.2 Presence of prosthetic heart valve (principal); Z98.890 Other specified postprocedural states
CPT/HCPCS: 36415; 85610

== ENCOUNTER → 2018-10-09 | Outpatient (CLI) | payer OTHER ==
[2018-10-09 12:40] LABS: INTERNATIONAL RATION (INR) 3.48; PROTHROMBIN TIME 36.6 SEC (11.4-15.4)
== END ==
LOC: OD 11:41
PROVIDERS: ATTEND Pediatrics Pediatric Cardiology
DX: Z95.2 Presence of prosthetic heart valve (principal)
CPT/HCPCS: 36415; 85610

== ENCOUNTER → 2018-10-16 | Outpatient (CLI) | payer OTHER ==
[2018-10-16 13:03] LABS: INTERNATIONAL RATION (INR) 3.04; PROTHROMBIN TIME 32.9 SEC (11.4-15.4)
== END ==
LOC: OD 11:50
PROVIDERS: ATTEND Pediatrics Pediatric Cardiology
DX: Z51.81 Encounter for therapeutic drug level monitoring (principal); Z79.01 Long term (current) use of anticoagulants; Z95.2 Presence of prosthetic heart valve; Z98.890 Other specified postprocedural states
CPT/HCPCS: 36415; 85610

== ENCOUNTER → 2018-10-22 | Outpatient (CLI) | payer OTHER ==
[2018-10-22 17:52] LABS: INTERNATIONAL RATION (INR) 2.37
== END ==
LOC: OD 16:58
PROVIDERS: ATTEND Pediatrics Pediatric Cardiology
DX: Z95.2 Presence of prosthetic heart valve (principal); Z98.890 Other specified postprocedural states
CPT/HCPCS: 36415; 85610

== ENCOUNTER → 2018-11-12 | Outpatient (CLI) | payer OTHER ==
[2018-11-12 14:36] LABS: INTERNATIONAL RATION (INR) 2.47; PROTHROMBIN TIME 27.2 SEC (11.4-15.4)
== END ==
LOC: OD 13:34
PROVIDERS: ATTEND Pediatrics Pediatric Cardiology
DX: Z95.2 Presence of prosthetic heart valve (principal); Z98.890 Other specified postprocedural states
CPT/HCPCS: 36415; 85610

== ENCOUNTER → 2018-11-20 | Outpatient (CLI) | payer OTHER ==
[2018-11-20 12:00] LABS: PROTHROMBIN TIME 27.5 SEC (11.4-15.4)
== END ==
LOC: OD 11:17
PROVIDERS: ATTEND Pediatrics Pediatric Cardiology
DX: Z95.2 Presence of prosthetic heart valve (principal); Z98.890 Other specified postprocedural states
CPT/HCPCS: 36415; 85610

== ENCOUNTER → 2018-12-04 | Outpatient (CLI) | payer OTHER ==
[2018-12-04 09:26] LABS: INTERNATIONAL RATION (INR) 3.22; PROTHROMBIN TIME 33.6 SEC (11.4-15.4)
== END ==
LOC: OD 08:27
PROVIDERS: ATTEND Pediatrics Pediatric Cardiology
DX: Z95.2 Presence of prosthetic heart valve (principal); Z98.890 Other specified postprocedural states
CPT/HCPCS: 36415; 85610

== ENCOUNTER → 2018-12-10 | Outpatient (CLI) | payer OTHER ==
[2018-12-10 17:32] LABS: INTERNATIONAL RATION (INR) 3.74; PROTHROMBIN TIME 37.9 SEC (11.4-15.4)
== END ==
LOC: OD 16:44
PROVIDERS: ATTEND Pediatrics Pediatric Cardiology
DX: Z95.2 Presence of prosthetic heart valve (principal); Z98.890 Other specified postprocedural states
CPT/HCPCS: 36415; 85610

== ENCOUNTER → 2018-12-22 | Outpatient (CLI) | payer OTHER ==
[2018-12-22 12:29] LABS: INTERNATIONAL RATION (INR) 3.02; PROTHROMBIN TIME 31.9 SEC (11.4-15.4)
== END ==
LOC: OD 11:57
PROVIDERS: ATTEND Pediatrics Pediatric Cardiology
DX: Z51.81 Encounter for therapeutic drug level monitoring (principal); Z95.2 Presence of prosthetic heart valve; Z79.01 Long term (current) use of anticoagulants; Z98.890 Other specified postprocedural states
CPT/HCPCS: 36415; 85610

== ENCOUNTER → 2018-12-31 | Outpatient (CLI) | payer OTHER ==
[2018-12-31 17:44] LABS: INTERNATIONAL RATION (INR) 3.11; PROTHROMBIN TIME 32.7 SEC (11.4-15.4)
[2018-12-31 17:59] LABS: ANION GAP 10 (5-19); BLOOD UREA NITROGEN 17 mg/dL (7-20); CARBON DIOXIDE 28 mmol/L (22-30); CHLORIDE 104 mmol/L (98-107); GLUCOSE 74 mg/dL (75-110); POTASSIUM 4.3 mmol/L (3.6-5.0)
== END ==
LOC: OD 16:17
PROVIDERS: ATTEND Pediatrics Pediatric Cardiology
DX: Z95.2 Presence of prosthetic heart valve (principal); Z98.890 Other specified postprocedural states; Q20.0 Common arterial trunk; I49.3 Ventricular premature depolarization; Z87.74 Personal history of (corrected) congenital malformations of heart and circulatory system
CPT/HCPCS: 36415; 80048; 85610

== ENCOUNTER → 2019-01-15 | Outpatient (CLI) | payer OTHER ==
[2019-01-16 10:53] LABS: PROTHROMBIN TIME 39.2 SEC (11.4-15.4)
== END ==
LOC: OD 08:30
PROVIDERS: ATTEND Pediatrics Pediatric Cardiology
DX: Z51.81 Encounter for therapeutic drug level monitoring (principal); Z79.01 Long term (current) use of anticoagulants; Z95.2 Presence of prosthetic heart valve; Z98.890 Other specified postprocedural states
CPT/HCPCS: 36415; 85610

== ENCOUNTER → 2019-01-26 | Outpatient (CLI) | payer OTHER ==
[2019-01-26 12:47] LABS: INTERNATIONAL RATION (INR) 4.75; PROTHROMBIN TIME 45.9 SEC (11.4-15.4)
== END ==
LOC: OD 11:45
PROVIDERS: ATTEND Pediatrics Pediatric Cardiology
DX: Z98.890 Other specified postprocedural states (principal); Z95.2 Presence of prosthetic heart valve
CPT/HCPCS: 36415; 85610

== ENCOUNTER → 2019-01-28 | Outpatient (CLI) | payer OTHER ==
[2019-01-28 09:52] LABS: INTERNATIONAL RATION (INR) 3.55; PROTHROMBIN TIME 36.4 SEC (11.4-15.4)
[2019-01-29 09:44] LABS: INTERNATIONAL RATION (INR) 2.32; PROTHROMBIN TIME 25.9 SEC (11.4-15.4)
== END ==
LOC: OD 08:41
PROVIDERS: ATTEND Pediatrics Pediatric Cardiology
DX: Z51.81 Encounter for therapeutic drug level monitoring (principal); Z79.01 Long term (current) use of anticoagulants; Z95.2 Presence of prosthetic heart valve; Z98.890 Other specified postprocedural states
CPT/HCPCS: 36415; 85610

== ENCOUNTER → 2019-02-05 | Outpatient (CLI) | payer OTHER ==
[2019-02-05 09:44] LABS: INTERNATIONAL RATION (INR) 2.63; PROTHROMBIN TIME 28.6 SEC (11.4-15.4)
== END ==
LOC: OD 08:13
PROVIDERS: ATTEND Pediatrics Pediatric Cardiology
DX: Z51.81 Encounter for therapeutic drug level monitoring (principal); Z79.01 Long term (current) use of anticoagulants; Z95.2 Presence of prosthetic heart valve; Z98.890 Other specified postprocedural states
CPT/HCPCS: 36415; 85610

== ENCOUNTER → 2019-02-12 | Outpatient (CLI) | payer OTHER ==
[2019-02-12 08:50] LABS: INTERNATIONAL RATION (INR) 2.72; PROTHROMBIN TIME 29.4 SEC (11.4-15.4)
== END ==
LOC: OD 08:20
PROVIDERS: ATTEND Pediatrics Pediatric Cardiology
DX: Z51.81 Encounter for therapeutic drug level monitoring (principal); Z79.01 Long term (current) use of anticoagulants; Z95.2 Presence of prosthetic heart valve; Z98.890 Other specified postprocedural states
CPT/HCPCS: 36415; 85610

== ENCOUNTER → 2019-02-19 | Outpatient (CLI) | payer OTHER ==
[2019-02-19 09:59] LABS: INTERNATIONAL RATION (INR) 2.93; PROTHROMBIN TIME 31.2 SEC (11.4-15.4)
== END ==
LOC: OD 08:18
PROVIDERS: ATTEND Pediatrics Pediatric Cardiology
DX: Z51.81 Encounter for therapeutic drug level monitoring (principal); Z95.2 Presence of prosthetic heart valve; Z98.890 Other specified postprocedural states; Z79.01 Long term (current) use of anticoagulants
CPT/HCPCS: 36415; 85610

== ENCOUNTER → 2019-02-26 | Outpatient (CLI) | payer OTHER ==
[2019-02-26 09:32] LABS: INTERNATIONAL RATION (INR) 2.62; PROTHROMBIN TIME 28.5 SEC (11.4-15.4)
== END ==
LOC: OD 08:39
PROVIDERS: ATTEND Pediatrics Pediatric Cardiology
DX: Z51.81 Encounter for therapeutic drug level monitoring (principal); Z95.2 Presence of prosthetic heart valve; Z79.01 Long term (current) use of anticoagulants; Z98.890 Other specified postprocedural states
CPT/HCPCS: 36415; 85610

== ENCOUNTER → 2019-03-05 | Outpatient (CLI) | payer OTHER ==
[2019-03-05 09:45] LABS: INTERNATIONAL RATION (INR) 3.86; PROTHROMBIN TIME 38.9 SEC (11.4-15.4)
== END ==
LOC: OD 08:17
PROVIDERS: ATTEND Pediatrics Pediatric Cardiology
DX: Z51.81 Encounter for therapeutic drug level monitoring (principal); Z95.2 Presence of prosthetic heart valve; Z79.01 Long term (current) use of anticoagulants; Z98.890 Other specified postprocedural states
CPT/HCPCS: 36415; 85610

== ENCOUNTER → 2019-03-09 | Outpatient (CLI) | payer OTHER ==
[2019-03-09 12:32] LABS: INTERNATIONAL RATION (INR) 3.18; PROTHROMBIN TIME 33.3 SEC (11.4-15.4)
== END ==
LOC: OD 11:41
PROVIDERS: ATTEND Pediatrics Pediatric Cardiology
DX: Z95.2 Presence of prosthetic heart valve (principal); Z98.890 Other specified postprocedural states
CPT/HCPCS: 36415; 85610

== ENCOUNTER → 2019-04-02 | Outpatient (CLI) | payer OTHER ==
[2019-04-02 17:53] LABS: INTERNATIONAL RATION (INR) 1.78; PROTHROMBIN TIME 20.9 SEC (11.4-15.4)
== END ==
LOC: OD 16:28
PROVIDERS: ATTEND Pediatrics Pediatric Cardiology
DX: Z51.81 Encounter for therapeutic drug level monitoring (principal); Z79.01 Long term (current) use of anticoagulants; Z95.2 Presence of prosthetic heart valve; Z98.890 Other specified postprocedural states
CPT/HCPCS: 36415; 85610

== ENCOUNTER → 2019-04-13 | Outpatient (CLI) | payer OTHER ==
[2019-04-13 12:33] LABS: INTERNATIONAL RATION (INR) 3.75
== END ==
LOC: OD 11:47
PROVIDERS: ATTEND Pediatrics Pediatric Cardiology
DX: Z98.890 Other specified postprocedural states (principal); Z95.2 Presence of prosthetic heart valve
CPT/HCPCS: 36415; 85610

== ENCOUNTER → 2019-04-20 | Outpatient (CLI) | payer OTHER ==
[2019-04-20 12:54] LABS: INTERNATIONAL RATION (INR) 2.65; PROTHROMBIN TIME 28.8 SEC (11.4-15.4)
== END ==
LOC: OD 11:53
PROVIDERS: ATTEND Pediatrics Pediatric Cardiology
DX: Z51.81 Encounter for therapeutic drug level monitoring (principal); Z95.2 Presence of prosthetic heart valve; Z79.01 Long term (current) use of anticoagulants
CPT/HCPCS: 36415; 85610

== ENCOUNTER → 2019-05-04 | Outpatient (CLI) | payer OTHER ==
[2019-05-04 12:55] LABS: INTERNATIONAL RATION (INR) 3.41; PROTHROMBIN TIME 35.2 SEC (11.4-15.4)
== END ==
LOC: OD 12:09
PROVIDERS: ATTEND Pediatrics Pediatric Cardiology
DX: Z51.81 Encounter for therapeutic drug level monitoring (principal); Z95.0 Presence of cardiac pacemaker; Z79.01 Long term (current) use of anticoagulants; Z98.890 Other specified postprocedural states
CPT/HCPCS: 36415; 85610

== ENCOUNTER → 2019-05-10 | Outpatient (CLI) | payer OTHER ==
[2019-05-10 09:59] LABS: INTERNATIONAL RATION (INR) 3.45; PROTHROMBIN TIME 35.6 SEC (11.4-15.4)
== END ==
LOC: OD 08:12
PROVIDERS: ATTEND Pediatrics Pediatric Cardiology
DX: Z51.81 Encounter for therapeutic drug level monitoring (principal); Z95.2 Presence of prosthetic heart valve; Z79.01 Long term (current) use of anticoagulants; Z98.890 Other specified postprocedural states
CPT/HCPCS: 36415; 85610

== ENCOUNTER → 2019-05-27 | Outpatient (CLI) | payer OTHER ==
[2019-05-27 16:56] LABS: INTERNATIONAL RATION (INR) 2.92; PROTHROMBIN TIME 31.1 SEC (11.4-15.4)
== END ==
LOC: OD 15:35
PROVIDERS: ATTEND Pediatrics Pediatric Cardiology
DX: Z51.81 Encounter for therapeutic drug level monitoring (principal); Z95.2 Presence of prosthetic heart valve; Z79.01 Long term (current) use of anticoagulants; Z98.890 Other specified postprocedural states
CPT/HCPCS: 36415; 85610

== ENCOUNTER → 2019-06-11 | Outpatient (CLI) | payer OTHER ==
[2019-06-11 09:30] LABS: INTERNATIONAL RATION (INR) 3.24; PROTHROMBIN TIME 33.8 SEC (11.4-15.4)
== END ==
LOC: OD 08:30
PROVIDERS: ATTEND Pediatrics Pediatric Cardiology
DX: Z95.2 Presence of prosthetic heart valve (principal)
CPT/HCPCS: 36415; 85610

== ENCOUNTER → 2019-06-18 | Outpatient (CLI) | payer OTHER ==
[2019-06-18 09:13] LABS: INTERNATIONAL RATION (INR) 3.52; PROTHROMBIN TIME 36.1 SEC (11.4-15.4)
== END ==
LOC: OD 08:10
PROVIDERS: ATTEND Pediatrics Pediatric Cardiology
DX: Z51.81 Encounter for therapeutic drug level monitoring (principal); Z79.01 Long term (current) use of anticoagulants; Z95.2 Presence of prosthetic heart valve
CPT/HCPCS: 36415; 85610

== ENCOUNTER → 2019-06-29 | Outpatient (CLI) | payer OTHER ==
[2019-06-29 14:03] LABS: INTERNATIONAL RATION (INR) 3.07; PROTHROMBIN TIME 32.4 SEC (11.4-15.4)
== END ==
LOC: OD 13:18
PROVIDERS: ATTEND Pediatrics Pediatric Cardiology
DX: Z51.81 Encounter for therapeutic drug level monitoring (principal); Z95.2 Presence of prosthetic heart valve; Z79.01 Long term (current) use of anticoagulants
CPT/HCPCS: 36415; 85610

== ENCOUNTER → 2019-07-20 | Outpatient (CLI) | payer OTHER ==
[2019-07-20 17:11] LABS: INTERNATIONAL RATION (INR) 2.21; PROTHROMBIN TIME 24.9 SEC (11.4-15.4)
== END ==
LOC: OD 15:32
PROVIDERS: ATTEND Pediatrics Pediatric Cardiology
DX: Z51.81 Encounter for therapeutic drug level monitoring (principal); Z79.01 Long term (current) use of anticoagulants; Z95.2 Presence of prosthetic heart valve
CPT/HCPCS: 36415; 85610

== ENCOUNTER → 2019-07-26 | Outpatient (CLI) | payer OTHER ==
[2019-07-26 18:03] LABS: PROTHROMBIN TIME 40.3 SEC (11.4-15.4)
[2019-07-27 07:25] LABS: INTERNATIONAL RATION (INR) 4.03
== END ==
LOC: OD 16:51
PROVIDERS: ATTEND Pediatrics Pediatric Cardiology
DX: Z51.81 Encounter for therapeutic drug level monitoring (principal); Z79.01 Long term (current) use of anticoagulants; Z95.2 Presence of prosthetic heart valve
CPT/HCPCS: 36415; 85610

== ENCOUNTER → 2019-08-02 | Outpatient (CLI) | payer OTHER ==
[2019-08-02 13:57] LABS: PROTHROMBIN TIME 31.8 SEC (11.4-15.4)
== END ==
LOC: OD 12:37
PROVIDERS: ATTEND Pediatrics Pediatric Cardiology
DX: Z95.2 Presence of prosthetic heart valve (principal)
CPT/HCPCS: 36415; 85610

== ENCOUNTER → 2019-09-02 | Outpatient (CLI) | payer OTHER ==
[2019-09-02 15:21] LABS: INTERNATIONAL RATION (INR) 2.48; PROTHROMBIN TIME 27.3 SEC (11.4-15.4)
== END ==
LOC: OD 14:29
PROVIDERS: ATTEND Pediatrics Pediatric Cardiology
DX: Z51.81 Encounter for therapeutic drug level monitoring (principal); Z95.2 Presence of prosthetic heart valve; Z79.01 Long term (current) use of anticoagulants
CPT/HCPCS: 36415; 85610

== ENCOUNTER → 2019-09-10 | Outpatient (CLI) | payer OTHER ==
[2019-09-10 11:10] LABS: INTERNATIONAL RATION (INR) 3.08; PROTHROMBIN TIME 32.5 SEC (11.4-15.4)
== END ==
LOC: OD 10:24
PROVIDERS: ATTEND Pediatrics Pediatric Cardiology
DX: Z51.81 Encounter for therapeutic drug level monitoring (principal); Z79.01 Long term (current) use of anticoagulants; Z95.2 Presence of prosthetic heart valve
CPT/HCPCS: 36415; 85610

== ENCOUNTER → 2019-09-17 | Outpatient (CLI) | payer OTHER ==
[2019-09-17 14:29] LABS: INTERNATIONAL RATION (INR) 2.97; PROTHROMBIN TIME 31.5 SEC (11.4-15.4)
== END ==
LOC: OD 13:49
PROVIDERS: ATTEND Pediatrics Pediatric Cardiology
DX: Z51.81 Encounter for therapeutic drug level monitoring (principal); Z95.2 Presence of prosthetic heart valve; Z79.01 Long term (current) use of anticoagulants
CPT/HCPCS: 36415; 85610

== ENCOUNTER → 2019-09-28 | Outpatient (CLI) | payer OTHER ==
[2019-09-28 12:42] LABS: PROTHROMBIN TIME 31.8 SEC (11.4-15.4)
== END ==
LOC: OD 12:17
PROVIDERS: ATTEND Pediatrics Pediatric Cardiology
DX: Z95.2 Presence of prosthetic heart valve (principal)
CPT/HCPCS: 36415; 85610

== ENCOUNTER → 2019-10-19 | Outpatient (CLI) | payer OTHER ==
[2019-10-19 13:31] LABS: INTERNATIONAL RATION (INR) 4.25
== END ==
LOC: OD 12:19
PROVIDERS: ATTEND Pediatrics Pediatric Cardiology
DX: Z51.81 Encounter for therapeutic drug level monitoring (principal); Z95.2 Presence of prosthetic heart valve; Z79.01 Long term (current) use of anticoagulants
CPT/HCPCS: 36415; 85610

== ENCOUNTER → 2019-10-26 | Outpatient (CLI) | payer OTHER ==
[2019-10-26 15:56] LABS: INTERNATIONAL RATION (INR) 1.74; PROTHROMBIN TIME 20.6 SEC (11.4-15.4)
== END ==
LOC: OD 15:13
PROVIDERS: ATTEND Pediatrics Pediatric Cardiology
DX: Z95.2 Presence of prosthetic heart valve (principal)
CPT/HCPCS: 36415; 85610

== ENCOUNTER → 2019-11-02 | Outpatient (CLI) | payer OTHER ==
[2019-11-02 12:41] LABS: INTERNATIONAL RATION (INR) 3.14
[2019-11-02 13:05] LABS: PROTHROMBIN TIME 32.9 SEC (11.4-15.4)
== END ==
LOC: OD 11:26
PROVIDERS: ATTEND Pediatrics Pediatric Cardiology
DX: Z95.2 Presence of prosthetic heart valve (principal)
CPT/HCPCS: 36415; 85610

== ENCOUNTER → 2019-11-18 | Outpatient (CLI) | payer OTHER ==
[2019-11-18 10:10] LABS: INTERNATIONAL RATION (INR) 3.94; PROTHROMBIN TIME 39.6 SEC (11.4-15.4)
== END ==
LOC: OD 08:39
PROVIDERS: ATTEND Pediatrics Pediatric Cardiology
DX: Z51.81 Encounter for therapeutic drug level monitoring (principal); Z95.2 Presence of prosthetic heart valve; Z79.01 Long term (current) use of anticoagulants
CPT/HCPCS: 36415; 85610

== ENCOUNTER → 2019-12-02 | Outpatient (CLI) | payer OTHER ==
[2019-12-02 17:44] LABS: INTERNATIONAL RATION (INR) 3.25; PROTHROMBIN TIME 33.9 SEC (11.4-15.4)
== END ==
LOC: OD 15:56
PROVIDERS: ATTEND Pediatrics Pediatric Cardiology
DX: Z51.81 Encounter for therapeutic drug level monitoring (principal); Z95.2 Presence of prosthetic heart valve; Z79.01 Long term (current) use of anticoagulants
CPT/HCPCS: 36415; 85610

== ENCOUNTER → 2019-12-24 | Outpatient (CLI) | payer OTHER ==
[2019-12-24 13:59] LABS: INTERNATIONAL RATION (INR) 2.59; PROTHROMBIN TIME 27.7 SEC (11.4-15.4)
== END ==
LOC: OD 13:14
PROVIDERS: ATTEND Pediatrics Pediatric Cardiology
DX: Z51.81 Encounter for therapeutic drug level monitoring (principal); Z95.2 Presence of prosthetic heart valve; Z79.01 Long term (current) use of anticoagulants
CPT/HCPCS: 36415; 85610

== ENCOUNTER → 2020-01-11 | Outpatient (CLI) | payer OTHER ==
[2020-01-11 15:20] LABS: INTERNATIONAL RATION (INR) 3.06; PROTHROMBIN TIME 31.5 SEC (11.4-15.4)
== END ==
LOC: OD 14:37
PROVIDERS: ATTEND Pediatrics Pediatric Cardiology
DX: Z48.812 Encounter for surgical aftercare following surgery on the circulatory system (principal); Z95.2 Presence of prosthetic heart valve
CPT/HCPCS: 36415; 85610

== ENCOUNTER → 2020-02-01 | Outpatient (CLI) | payer OTHER ==
[2020-02-01 12:19] LABS: INTERNATIONAL RATION (INR) 4.05
== END ==
LOC: OD 11:34
PROVIDERS: ATTEND Pediatrics Pediatric Cardiology
DX: Z51.81 Encounter for therapeutic drug level monitoring (principal); Z79.01 Long term (current) use of anticoagulants; Z95.2 Presence of prosthetic heart valve
CPT/HCPCS: 36415; 85610

== ENCOUNTER → 2020-02-04 | Outpatient (CLI) | payer OTHER ==
[2020-02-04 08:35] LABS: INTERNATIONAL RATION (INR) 2.69; PROTHROMBIN TIME 28.5 SEC (11.4-15.4)
== END ==
LOC: OD 07:03
PROVIDERS: ATTEND Pediatrics Pediatric Cardiology
DX: Z51.81 Encounter for therapeutic drug level monitoring (principal); Z79.899 Other long term (current) drug therapy; Z95.2 Presence of prosthetic heart valve
CPT/HCPCS: 36415; 85610

== ENCOUNTER → 2020-03-14 | Outpatient (CLI) | payer OTHER ==
[2020-03-14 12:23] LABS: INTERNATIONAL RATION (INR) 3.23; PROTHROMBIN TIME 32.8 SEC (11.4-15.4)
== END ==
LOC: OD 11:13
PROVIDERS: ATTEND Pediatrics Pediatric Cardiology
DX: Z95.2 Presence of prosthetic heart valve (principal)
CPT/HCPCS: 36415; 85610

== ENCOUNTER → 2020-04-11 | Outpatient (CLI) | payer OTHER ==
[2020-04-11 13:38] LABS: INTERNATIONAL RATION (INR) 2.41; PROTHROMBIN TIME 26.2 SEC (11.4-15.4)
== END ==
LOC: OD 12:04
PROVIDERS: ATTEND Pediatrics Pediatric Cardiology
DX: Z95.2 Presence of prosthetic heart valve (principal)
CPT/HCPCS: 36415; 85610

== ENCOUNTER → 2020-05-23 | Outpatient (CLI) | payer OTHER ==
[2020-05-23 13:16] LABS: INTERNATIONAL RATION (INR) 3.46; PROTHROMBIN TIME 34.6 SEC (11.4-15.4)
== END ==
LOC: OD 12:02
PROVIDERS: ATTEND Pediatrics Pediatric Cardiology
DX: Z51.81 Encounter for therapeutic drug level monitoring (principal); Z95.2 Presence of prosthetic heart valve
CPT/HCPCS: 36415; 85610